=== PATIENT | female | born 1960 | race Caucasian/White ===

== ENCOUNTER 2020-02-10 21:59 | Observation (INO) | payer BC, SELFPAY ==
--- NOTE | ~2020-02-10 | MR_ITS ---
EXAMINATION: MR brain/brain stem wo/w con DATE: 02/11/2020 13:09 INDICATION: Dizziness. TECHNIQUE: Magnetic resonance imaging (MRI) of the brain and brainstem was performed without and with 12 mL MultiHance intravenous contrast. Sequences included sagittal and axial T1-weighted FSE, axial diffusion-weighted FS EPI, axial T2*-weighted GRE, axial T2-weighted FLAIR Propeller, and axial T2-we ighted Propeller. Postcontrast sequences included axial and coronal T1-weighted FSE. Apparent diffusi on coefficient (ADC) maps were created. COMPARISON: Head CTA 02/10/2020 FINDINGS: There are scattered areas of nonspecific increased T2-weighted signal intensity in the cere bral white matter, which is within normal limits for the patient's age. There is no intracranial hemo rrhage, acute infarction, or abnormal intracranial mass lesion. The ventricles are normal in size. Th ere is mucosal thickening in the paranasal sinuses. The orbits are normal. The mastoid air cells are normal. IMPRESSION: 1. Normal aging brain. Reviewed, dictated and finalized at location A. IMPRESSION: 1. Normal aging brain.
--- NOTE | ~2020-02-10 | CT_ITS ---
EXAMINATION: CTA brain carotid DATE: 02/10/2020 23:03 INDICATION: Dizziness. TECHNIQUE: Computed tomographic angiography (CTA) of the head was performed without and with 100 mL O mnipaque-350 intravenous contrast. CTA of the neck was performed with intravenous contrast. Automated exposure control and iterative reconstruction technique were employed. The dose-length product was 1 757.71 mGy-cm. Maximum intensity projection and volume rendered 3D-reconstructions were created by odalys lopez technologist on a separate workstation. COMPARISON: None. FINDINGS: HEAD CTA: There is no intracranial hemorrhage, acute infarction, or abnormal intracranial mass lesion . The ventricles are normal in size. The orbits are normal. There is mild mucosal thickening in the p aranasal sinuses. The mastoid air cells are normal. The vertebral arteries are codominant. There is n o significant stenosis of basilar artery or the posterior cerebral arteries. Left P1 posterior cerebr al artery segment is small, a normal variant. There is no significant stenosis of the intracranial in ternal carotid arteries or anterior or middle cerebral arteries. Anterior communicating artery is nor mal. The posterior communicating arteries are normal. There is no aneurysm. NECK CTA: There is mild scarring at the lung apices. There is an 8 mm nodule in left thyroid lobe, li jono not clinically significant. There are no pathologically enlarged lymph nodes. There is plaque in the proximal internal carotid arteries. There is 0% stenosis of the proximal right internal carotid artery relative to normal distal artery lumen diameter (NASCET criteria). There is 0% stenosis of the proximal left internal carotid artery relative to normal distal artery lumen diameter. There is mode rate cervical spondylosis. IMPRESSION: 1. Normal brain. No aneurysm or significant intracranial arterial stenosis. 2. 0% stenosis of the proximal internal carotid arteries relative to normal distal artery lumen luise ters (NASCET criteria). Reviewed, dictated and finalized at location A. IMPRESSION: 1. Normal brain. No aneurysm or significant intracranial arterial stenosis. 2. 0% stenosis of the proximal internal carotid arteries relative to normal dis roseanne artery lumen diameters (NASCET criteria).
[2020-02-10 22:03] VITALS: BP 121/61; PULSE 71; RESP 20; O2SAT 99
--- NOTE | 2020-02-10 22:07 | ECG_ITS ---
Measurements Intervals [place] Rate: 50 P: 71 AL: 150 QRS: 88 QRSD: 105 T: 78 QT: 461 QTc: 424 Interpretive Statements SINUS BRADYCARDIA BASELINE ARTIFACT- I, II, III, AVR, AVL, AVF, V1-V6 BORDERLINE ECG Electronically Signed On 02-11-2020 6:55:58 CDT by Jacobo Jeffrey D.O.
--- NOTE | 2020-02-10 22:08 | ED.GENADULT ---
HPI - General Adult General Chief complaint: Dizziness Stated complaint: weakness Time Seen by Provider: 02/10/20 22:03 Source: patient History of Present Illness HPI narrative: Patient is a 59 y/o female complaining of severe dizziness, nausea, vomiting, numbness/tingling all over since 6 hours ago. This started about 4:00 PM. She describes her dizziness as a room spinning sensation. Her dizziness is worse with turn her head to the right side. She denies passing out. She is able to move all 4 extremities. Related Data Home Medications Medication Instructions Recorded Confirmed teriparatide [Forteo] 20 mcg SUBCUT DAILY 02/11/20 02/11/20 Allergies Allergy/AdvReac Type Severity Reaction Status Date / Time No Known Drug Allergies Allergy Unknown none Verified 02/11/20 02:59 Review of Systems Constitutional: Constitutional: Denies chills, Denies fever(s), Denies headache(s) and Denies weakness Eyes: Eyes: Denies blurry vision ENT: Denies headache(s) and Denies neck pain Cardiovascular: Cardiovascular: Denies chest pain and Denies dyspnea Respiratory: Respiratory: Denies cough and Denies dyspnea Gastrointestinal: Gastrointestinal: Denies abdominal pain, Denies diarrhea, Reports nausea and Reports vomiting Genitourinary: Genitourinary: Denies hematuria and Denies dysuria Musculoskeletal: Musculoskeletal: Denies back pain and Denies neck pain Neurologic: Reports vertigo, Reports dizziness, Denies headache(s) and Denies weakness [facility] Past Medical History Medical History (Updated 02/11/20 @ 13:20 by Kathy Sal MD) Osteoporosis Temporal arteritis Family History Family History Father Acute myocardial infarction Social History Social History Smoking status: Never smoker Alcohol intake: never Substance use: never Gender identity (if verbalized by the patient): Female Spiritual care concerns: No Exam Const: General: no acute distress, well developed and anxious Orientation/consciousness: oriented to person, oriented to place, oriented to time and patient oriented x3 HENMT: Head: normocephalic Ears: external ears normal General nose exam: Normal external nose present Eyes: General: appearance normal, both eyes and all related structures Conjunctivae: conjunctivae normal Neck: Neck: normal visual inspection and full ROM Chest: Chest palpation & inspection: normal inspection of the chest and no tenderness Resp: Effort & Inspection: normal respiratory effort Auscultation: clear to auscultation bilaterally Cardio: Rate: regular rate Rhythm: regular rhythm GI: GI Palp: No abdominal tenderness and Yes Soft to palpation Skin: General skin exam: normal color, turgor normal and other (diaphoretic) Neuro: General: oriented to person, oriented to place, oriented to time and patient oriented x3 Cranial nerves: Yes CN's II-XII intact bilaterally Cognition (Neuro): normal cognition Speech: normal speech Motor exam (neuro): 5/5 motor strength present throughout Sensory Exam: normal sensation Coordination: iemkax-jp-[id number] test normal and jyjj-tm-ytih test normal Extrem: General: normal to inspection, full ROM and no pedal edema Psych: Appearance: grossly normal Mental Status: mental status grossly normal Affect: Anxious affect present Course Reevaluation(s) Reevaluation #1: Rechecked. Patient still feels dizzy and has nausea. Date: 02/10/20 Time: 23:45 Consultations Consultation #1: Discussed with Dr. Urrutia, who agrees to admit. Date: 02/10/20 Time: 23:59 Consultation #2: Discussed with Dr. Sims, who agrees to consult and also recommends MRI of brain. Date: 02/11/20 Time: 00:04 Vital Signs Vital signs: Vital Signs Pulse Rate 71 02/10/20 22:03 Respiratory Rate 20 02/10/20 22:03 Blood Pressure 121/61 02/10/20 22:03 Pulse Oximetry 99 02/10/20 22:03 Temperat
[2020-02-10 22:21] VITALS: BP 125/69; PULSE 59; RESP 13; O2SAT 100
[2020-02-10 22:22] LABS: Basophils Percent Auto 0.2 % (0.2-1.2); Eosinophils Percent Auto 0.8 % (0-4.4); Hematocrit 41.4 % (37.0-47.0); Hemoglobin 14.1 g/dL (12.0-15.0); Immature Granulocyte Absolute 0.01 K/mm3 (0.00-0.031); Immature Granulocyte Percent A 0.2 % (0-0.5); Lymphocytes Absolute Auto 2.55 K/mm3 (0.9-3.2); Lymphocytes Percent Auto 50.8 % (18.3-44.2); Mean Corpuscular HGB Conc 34.1 g/dl (32-36); Mean Platelet Volume 8.9 fl (7.4-10.4); Monocytes Absolute Auto 0.6 K/mm3 (0.1-0.6); Monocytes Percent Auto 11.6 % (2.6-8.5); Neutrophils Absolute Auto 1.8 K/mm3 (1.3-6.7); Neutrophils Percent Auto 36.4 % (45.5-73.1); Platelet Count Result 304 k/mm3 (150-375); Red Blood Count 4.87 M/mm3 (4.2-5.4); Red Cell Distribution Width 12.9 % (11.5-14.5)
[2020-02-10] MEDS: ONDANSETRON INJ 4 MG/2 ML VIAL IV PUSH (22:31)
[2020-02-10 22:34] LABS: Alanine Aminotransferase 14 U/L (4-35); Albumin Level 4.1 g/dL (3.5-5.1); Alkaline Phosphatase 50 U/L (38-126); Anion Gap 11 mmol/L (8-16); Aspartate Amino Transferase 20 U/L (14-36); Bilirubin,Total 0.5 mg/dL (0.2-1.3); Blood Urea Nitrogen 14 mg/dL (7-17); Calcium 9.4 mg/dL (8.4-10.2); Carbon Dioxide 23 mmol/L (22-30); Chloride 101 mmol/L (98-107); Estimated Glomerular Filt Rate > 60; Glucose 113 mg/dL (65-105); Potassium 3.3 mmol/L (3.4-5.0); Sodium 135 mmol/L (137-145)
[2020-02-10] MEDS: MECLIZINE HCL 25 MG TABLET PO (23:07)
[2020-02-10] MEDS: POTASSIUM CHLORIDE 20 MEQ TABLET PO (23:24)
[2020-02-10 23:52] VITALS: O2SAT 98
[2020-02-10] MEDS: METOCLOPRAMIDE HCL INJ 10 MG/2 ML VIAL IV PUSH (23:56)
[2020-02-11] VITALS (11 sets, daily range): BP systolic 101–117; BP diastolic 52–85; PULSE 55–84; RESP 13–19; TEMP 36.9–37.3; O2SAT 97–100; BMI 19.8
--- NOTE | 2020-02-11 00:54 | PM.IMHP ---
H&P: HPI History of Present Illness Date/Time: 02/11/20 00:54 Chief complaint: dizziness Narrative: This is a pleasant 59-year-old female with known past medical history of temporal arteritis as well as osteoporosis who presented to the hospital with a complaint of dizziness, nausea, vomiting and frontal headache that started yesterday afternoon around 4:00 p.m.. The patient describes that she was driving when suddenly she felt very dizzy. She managed to get home and noticed that her dizziness worsened with any type of exertional activity such as standing up or moving her head. Her symptoms would not resolve so she decided to come to the emergency room for evaluation. She denies any previous history of dizziness. She denies any recent head trauma. On further questioning the patient also denies any loss of hearing or ear ringing. She has not had any recent fever, chills, cough, chest pain, palpitations, abdominal pain, dysuria, hematuria, diarrhea, rectal bleeding, or other focal neurological symptoms. She denies having any recent illnesses or sick contacts. The patient was evaluated emergency room this evening and head and neck CTA was performed which did not demonstrate any acute occlusion, dissection, or stenosis. Routine labs demonstrated mild hypokalemia. The patient was treated with meclizine and oral potassium. We been asked to admit the patient to the hospital for observation and continued care. She denies any other symptoms at this time. Review of Systems Review of Systems: All systems reviewed & are unremarkable except as noted in HPI and below PMFSH Past Medical History Medical History (Updated 02/11/20 @ 06:23 by Cirilo Urrutia MD) Osteoporosis Temporal arteritis Family History Family History Father Acute myocardial infarction Social History Social History Smoking status: Never smoker Alcohol intake: never Substance use: never Gender identity (if verbalized by the patient): Female Spiritual care concerns: No Comments Past surgical history is reviewed and noncontributory. Meds Home Medications and Allergies Home Medications Medication Instructions Recorded Confirmed Type teriparatide [Forteo] 20 mcg SUBCUT DAILY 02/11/20 02/11/20 History Allergies Allergy/AdvReac Type Severity Reaction Status Date / Time No Known Drug Allergies Allergy Unknown none Verified 02/11/20 02:59 Vital Signs Vital Signs - 24 hr 02/10/20 22:03 02/10/20 22:21 02/10/20 23:52 Pulse Rate 71 59 L Respiratory Rate 20 13 Blood Pressure 121/61 125/69 Pulse Oximetry 99 100 98 02/11/20 00:00 02/11/20 00:15 02/11/20 00:32 Pulse Rate 62 63 Respiratory Rate 13 15 Blood Pressure 101/85 Pulse Oximetry 100 97 99 02/11/20 00:45 02/11/20 00:47 Pulse Rate 59 L Respiratory Rate 19 Blood Pressure 108/74 Pulse Oximetry 99 100 Exam Const: General: cooperative, alert, awake and acute distress ( dizziness) mild Nutritional Appearance: well nourished Orientation/consciousness: patient oriented x3 HENMT: Head: normal to inspection General nose exam: Normal external nose present Face and sinus: normal facial exam Mouth: Yes Normal oral and palatal mucosa present and Yes oropharynx normal Eyes: Pupils: Equal, round and reactive pupils present EOM: EOMs intact bilaterally Neck: Neck: supple and no JVD Thyroid: thyroid normal Lymphatic: lymphadenopathy not noted Resp: Effort & Inspection: normal respiratory effort Auscultation: clear to auscultation bilaterally Cardio: Rate: regular rate Rhythm: regular rhythm Heart sounds: no murmurs GI: Inspection: normal to inspection Auscultation: normal bowel sounds Skin: General skin exam: normal color and no rashes or lesions noted Neuro: General: patient oriented x3 and other (Dizziness is easily induced with head movement
--- NOTE | 2020-02-11 01:05 | ADMGEN ---
This patient, Iraj Floyd, was admitted to 2 Medical Room 261-01. Patient/family oriented to hospital policies and general routines including ID bracelet, bed and alarms, visiting hours, pain management, procedures, bathroom and other care routines, personal items, smoking policy, room service/diet, and visiting hours. Valuables list has been completed. Information on how to activate the Rapid Response Team has been discussed. Patient/Family are encouraged to report perceived risks to care and to ask questions if they do not understand what they are told or what they should do.
[2020-02-11] MEDS: MECLIZINE HCL 25 MG TABLET PO ×2 (01:33→10:57)
[2020-02-11] MEDS: SODIUM CHLORIDE 0.9% IV 1,000 ML 100 ML IV CONT ×2 (01:34→11:32)
[2020-02-11 06:11] LABS: Basophils Percent Auto 0.3 % (0.2-1.2); Eosinophils Percent Auto 0.3 % (0-4.4); Hematocrit 37.9 % (37.0-47.0); Hemoglobin 12.7 g/dL (12.0-15.0); Immature Granulocyte Absolute 0.02 K/mm3 (0.00-0.031); Immature Granulocyte Percent A 0.6 % (0-0.5); Lymphocytes Absolute Auto 1.36 K/mm3 (0.9-3.2); Mean Corpuscular HGB Conc 33.5 g/dl (32-36); Mean Corpuscular Volume 86.5 fl (80-100); Mean Platelet Volume 9.1 fl (7.4-10.4); Monocytes Absolute Auto 0.5 K/mm3 (0.1-0.6); Monocytes Percent Auto 12.9 % (2.6-8.5); Neutrophils Absolute Auto 1.6 K/mm3 (1.3-6.7); Neutrophils Percent Auto 46.9 % (45.5-73.1); Platelet Count Result 259 k/mm3 (150-375); Red Blood Count 4.38 M/mm3 (4.2-5.4); Red Cell Distribution Width 12.9 % (11.5-14.5); White Blood Count 3.5 K/mm3 (4.5-10.0)
[2020-02-11 06:19] LABS: Anion Gap 3 mmol/L (8-16); Blood Urea Nitrogen 11 mg/dL (7-17); Calcium 8.5 mg/dL (8.4-10.2); Carbon Dioxide 29 mmol/L (22-30); Chloride 105 mmol/L (98-107); Estimated CRCL calculation 74 ml/min; Estimated Glomerular Filt Rate > 60; Glucose 94 mg/dL (65-105); Potassium 4.4 mmol/L (3.4-5.0); Sodium 137 mmol/L (137-145)
[2020-02-11 07:29] LABS: Folic Acid 10.9 ng/mL (2.76->20); Vitamin B12 > 1000.0 pg/mL (239-931)
--- NOTE | 2020-02-11 14:19 | PM.DS ---
DS: Admitting Diagnosis Admitting Diagnosis Admitting Diagnosis: dizziness DS: Discharge Diagnosis Discharge Diagnosis (1) Dizziness: Code(s): R42 - Dizziness and giddiness Status: Acute Assessment and Plan: Date of Admission 02/11/20 Date of Discharge/DOS 02/11/20 Ms. Floyd is a 59yo F who presented to the ED for evaluation of acute onset of dizziness. She described that she felt as though the room was spinning and her symptoms worsened with turning her head from side to side or moving from a lying /sitting to standing position. The following morning, her symptoms were much improved and nearly resolved. She was treated with meclizine. Workup included CTA head/neck and MRI brain which were unremarkable. It is felt that her symptoms at this time are related to vertigo. She was hemodynamically stable for discharge with instructions to follow-up with PCP. She was prescribed oral meclizine at discharge along with an order for PT/vestibular therapy if needed for persistent symptoms. (2) Osteoporosis: Code(s): M81.0 - Age-related osteoporosis without current pathological fracture Status: Chronic Assessment and Plan: Continue Forteo. DS: Summary Time Spent with Patient Time attestation: Total time spent providing and/or coordinating discharge services: 35 minutes Exam Narrative: Exam Narrative: General: Female resting supine in bed in no acute distress. HEENT: Normocephalic, EOMI, oral mucosa moist, no nystagmus. Cardiovascular: Rate and rhythm are regular. Respiratory: Lungs clear to auscultation all andrews. Non-labored breathing. Abdomen: Soft, non-tender, non-distended, bowel sounds present. Extremities: Peripheral pulses intact. No edema. Neuro: No focal neurological deficits. Cranial nerves II-XII grossly intact as tested. Trucksmith strength, upper and lower extremity strength are appropriate and equal bilaterally. No facial asymmetry. Speech is clear. DS: Data Data Completed and Pending Labs on day of discharge: Last Vital Signs Temp 99.2 F 02/11/20 10:12 Pulse 64 02/11/20 12:00 Resp 17 02/11/20 10:12 BP 105/60 02/11/20 10:12 Pulse Ox 98 02/11/20 10:12 ITS Impressions Head/Neck CTA 02/11/20 07:24 IMPRESSION: 1. Normal brain. No aneurysm or significant intracranial arterial stenosis. 2. 0% stenosis of the proximal internal carotid arteries relative to normal distal artery lumen diameters (NASCET criteria). Brain MRI 02/11/20 13:09 IMPRESSION: 1. Normal aging brain. Laboratory Tests 02/11/20 05:20 02/11/20 05:20 Discharge Plan Discharge Attending physician on discharge: Melany Winchester Consulting providers: Hermelindo Sims ; Jacobo Jeffrey ; Mac Velázquez V. ; Lisa Lazar Discharging Clinician: Lisa Lazar Anticipated Discharge Date/Time: 02/11/20 14:15 Patient Disposition: Home, Self-Care Activity: as tolerated Diet: as tolerated Discharge Instructions: Call to schedule a follow up appointment with Dr De Leon in 1 to 2 weeks, sooner if you are feeling worse. It is suspected that your symptoms are related to vertigo. You can continue to take meclizine as needed for dizziness. If dizziness persists, you may benefit from vestibular therapy, which is a special type of physical therapy to help with dizziness and vertigo. Attached in an order for vestibular therapy PT. The results of your brain CT and MRI are normal. There is no evidence of stroke (old or new), bleeding, mass, or other reasons to explain your symptoms. Continue to monitor your symptoms and seek medical care right away if your illness is worsening. Return to ER if you have concerning symptoms including chest pain, feeling like you can't breathe, or persistent fevers > 101F. In light of the current Coronavirus spread, is recommended that you call your primary care provider if you begin to develop
== END 2020-02-11 15:05 | disposition home or self-care (01) ==
LOC: ANHED 02-11 00:32 → ANH2MED 02-11 00:34
PROVIDERS: Admitting Provider Family Medicine; Emergency Provider Emergency Medicine; Visit Provider Family Medicine
DX: R42 Dizziness and giddiness (principal); M81.0 Age-related osteoporosis without current pathological fracture
CPT/HCPCS: 36415; 70496; 70498; 70553; 80048; 80053; 82607; 82746; 84443; 85025; 93005; 96361; 96374; 96375; 99285; A9270; A9577; G0378; J2405; J2765; J7030; Q9967

== ENCOUNTER 2023-02-03 13:30 | Outpatient (CLI) | payer BC, SELFPAY ==
[2023-02-03 13:59] LABS: Alanine Aminotransferase 18 U/L (6-35); Albumin Level 3.9 g/dL (3.5-5.1); Alkaline Phosphatase 33 U/L (38-126); Amylase 94 U/L (30-110); Aspartate Amino Transferase 25 U/L (14-36); Bilirubin,Total 0.6 mg/dL (0.2-1.3); Lipase 99 U/L (23-300)
== END 2023-02-03 13:31 | disposition home or self-care (01) ==
LOC: ANHLAB 13:32
PROVIDERS: Visit Provider Nurse Practitioner
DX: R10.13 Epigastric pain (principal); Z86.19 Personal history of other infectious and parasitic diseases; R05.3 Chronic cough; R49.0 Dysphonia
CPT/HCPCS: 36415; 80076; 82150; 83690

== ENCOUNTER → 2023-02-08 08:38 | Outpatient (CLI) | payer BC, SELFPAY ==
--- NOTE | ~2023-02-08 | US_ITS ---
US abdomen complete EXAMINATION: US Abdomen Complete INDICATION: Epigastric pain radiating to the right upper quadrant PROCEDURE: Realtime High Resolution abdomen ultrasound. COMPARISON: No prior studies for comparison FINDINGS: Gallbladder within normal limits. No gallstones, pericholecystic fluid, gallbladder wall t hickening or biliary dilatation. Common bile duct measures 4 mm. Liver echotexture within normal limits without focal mass. Pancreas within normal limits. Pancreati c tail is obscured by bowel gas. Spleen is unremarkeable. Renal echotexture is within normal limits bilaterally without hydronephrosis, contour deforming mass or renal stone. Right kidney measures 9.5 cm. Left kidney measures 10.9 cm. Visualized aspects of the aorta and IVC are within normal limits. Portal vein is patent. No sonograph ic Gutierrez's sign indicated by the technologist. IMPRESSION: 1: Unremarkable abdominal ultrasound. Reviewed, dictated and finalized at location .
== END ==
PROVIDERS: PCP Nurse Practitioner; Visit Provider Nurse Practitioner
DX: R10.13 Epigastric pain (principal)
CPT/HCPCS: 76700

== ENCOUNTER 2023-02-11 17:06 | Outpatient (CLI) | payer BC, SELFPAY ==
[2023-02-14 19:39] LABS: H pylori, Urea Breath NOT DETECTED (NOT DETECTED)
== END 2023-02-11 17:07 | disposition home or self-care (01) ==
LOC: ANHLAB 17:08
PROVIDERS: PCP Nurse Practitioner; Visit Provider Nurse Practitioner
DX: R10.13 Epigastric pain (principal); Z86.19 Personal history of other infectious and parasitic diseases; R05.3 Chronic cough; R49.0 Dysphonia
CPT/HCPCS: 83013

== ENCOUNTER 2023-06-01 08:30 | Outpatient (CLI) | payer BC, SELFPAY ==
--- NOTE | ~2023-06-01 | CT_ITS ---
EXAMINATION: CT abdomen w con DATE: 06/01/2023 09:13 INDICATION: Radiating epigastric pain TECHNIQUE: Computed tomography (CT) of the abdomen was performed with 100 CC Omnipaque 350 intravenou s contrast. Automated exposure control and iterative reconstruction technique were employed. Exam dos e: 106.72 mGy-cm total exam DLP. COMPARISON: 02/08/2023 complete abdominal ultrasound examination FINDINGS: The lung bases are clear of infiltrate or consolidation. Normal heart size. Trace pericardial fluid. Breast implants. The liver, spleen, gallbladder, bile ducts, pancreas, pancreatic duct and adrenal glands are unremark able. 6.5 mm right renal cyst. 7.7 mm left renal cyst. No renal or proximal ureteral calculus or hydrourete ronephrosis. There is atherosclerotic calcification but normal caliber of the abdominal aorta. No intraperitoneal or retroperitoneal mass lesion or adenopathy or ascites. No bowel obstruction or intraperitoneal free air is evident. Included skeletal structures are unremarkable. IMPRESSION: Bilateral renal cysts Reviewed, dictated and finalized at Location A. Reviewed, dictated and finalized at location B. NS SERVICE CONDUCTOR IMPRESSION: Bilateral renal cysts
[2023-06-01 09:06] LABS: Estimated Glomerular Filt Rate > 60
== END 2023-06-01 08:31 | disposition home or self-care (01) ==
PROVIDERS: PCP Nurse Practitioner; Visit Provider Nurse Practitioner
DX: R10.13 Epigastric pain (principal); K44.9 Diaphragmatic hernia without obstruction or gangrene; N28.1 Cyst of kidney, acquired
CPT/HCPCS: 74160; Q9967

== ENCOUNTER 2024-06-25 07:48 | Outpatient (CLI) | payer OTHER, SELFPAY ==
--- NOTE | ~2024-06-25 | US_ITS ---
EXAM: ABDOMEN ULTRASOUND HISTORY: R10.13 - Epigastric pain COMPARISON: 02/08/2023 FINDINGS: LIVER: The liver is unremarkable in echogenicity and size measuring 17cm in longitudinal dimension. The portal vein is patent demonstrating hepatopedal flow. GALLBLADDER: The gallbladder is decompressed, without calcified stones. No gallbladder wall thickening or pericholecystic fluid. BILE DUCTS: Common bile duct measures 2.7mm. PANCREAS: Limited evaluation of the pancreas secondary to overlying bowel gas SPLEEN: The spleen is unremarkable in echogenicity and size measuring 9.7cm in longitudinal dimension . RIGHT KIDNEY: 9.6 cm. In length. No hydronephrosis or bulky renal calculi. LEFT KIDNEY: 10.7cm in length. No hydronephrosis or renal calculi. VASCULATURE : The abdominal aorta is nonaneurysmal. The IVC is patent. IMPRESSION: Evaluation of the pancreas is limited by overlying bowel gas. Otherwise unremarkable sonographic evaluation of the abdomen, as detailed above. Reviewed, dictated and finalized at location A. [employer] IMPRESSION: Evaluation of the pancreas is limited by overlying bowel gas. Otherwise unremarkable sonographic evaluation of the abdomen, as detailed above .
--- OUTSIDE RECORDS SUMMARY | 2024-06-25 07:54 | XMS_ITS | Encounter Summary ---
Author Organization [facility] Address [address] [place] [address] Phone Care Team Providers Care Medical Insurance Coder Name Role Phone Iftikhar Lopez MD Primary Care Provider Valerie Jason MD Primary Care Provid er Encounter Details Date Type Department Care Team (Late st Contact Info) Description 10/07/2020 Orders Only [facility] Scanning, Provider Social History Tobacco Use Types Packs/Day Years Used Date Smoking Tobacco: Never Smokeless Tobacco: Never Alcohol Use Standard Drinks/Week Comments No 0 (1 standard drink = 0.6 oz pur e alcohol) Comments Unknown Sex and Gender Information Value Date Recorded Sex Assigned at Not on file Legal Sex Female 12:57 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 Gender Identity Not on file Sexual Orientation Not on file documented as of this encounter Plan of Treatment Not on file documented as of this encounter Procedures Procedure Name Priority Date/Time Associated Diagnosis Comments SCAN - RADIOLOGY/IMAGING 10/07/2020 documented in this encounter Results * SCAN - RADIOLOGY/IMAGING (10/07/2020) Anatomical Region Laterality Modality Other us Provider Scanning Final Result documented in this encounter Visit Diagnoses Not on filedocumented in this encounter Care Teams Medical Insurance Coder Relationship Specialty Start Date End Date Iftikhar Lopez MD [address] [place] [address] PCP - General 01/27/15 05/03/22 Valerie Jason MD [address] [facility] [address] [place] [address] PCP - General Internal Medicine 05/04/22 documented as of this encounter
--- OUTSIDE RECORDS SUMMARY | 2024-06-25 07:54 | XMS_ITS | Referral Summary ---
Author Organization [facility] Address [address] [place] [address] Care Team Providers Care Bench Lathe Operator Name Role Phone Iftikhar Lopez MD Primary Care Provider [phone] Source Comments [facility],non-owned Affiliates and Associated Physician Practices is amultiple site organization consisting of ambulatory clinics and hospital sitesin [place], [place], [place] and [place]. This disclosure is being madepursuant to the Care Everywhere program and may not contain all information available regarding this patient. Last updated 18.[facility] [employer] Social History Tobacco Use Types Packs/Day Years Used Date Smoking Tobacco: Never Assessed Sex and Gender Information Value Date Recorded Sex Assigned at Not on file Gender Identity Not on file Sexual Orientation Not on file Last Filed Vital Signs Vital Sign Reading Time Taken Comments Blood Pressure 110/70 07/30/2014 10:48 AM CDT Pulse - - Temperature - - Respiratory Rate - - Oxygen Saturation - - Inhaled Oxygen Concentration - - Weight 65.8 kg (145 lb) 07/30/2014 10:48 AM CDT Height 180.3 cm (5' 11 ) 07/30/2014 10:48 AM CDT Body Mass Index 20.22 07/30/2014 10:48 AM CDT Plan of Treatment Not on file Care Teams Bench Lathe Operator Relationship Specialty Start Date End Date Iftikhar Lopez MD [address] [place] [address] PCP - General 06/10/11
--- OUTSIDE RECORDS SUMMARY | 2024-06-25 07:54 | XMS_ITS | Encounter Summary ---
Author Organization [facility] Health Address [address] [place] [address] Care Team Providers Care Airdox Fitter Name Role Phone Iftikhar Lopez MD Primary Care Provider [phone] Encounter Details Date Type Department Care Team (Late st Contact [facility]) Description 05/17/2018 Lab Requisition [facility] Care DermPath Lab [address] [place] [address] Simran Oconnell MD [address] [facility] [address] [place] [address] Social History Tobacco Use Types Packs/Day Years Used Date Smoking Tobacco: Never Assessed Sex and Gender Information Value Date Recorded Sex Assigned at Not on file Gender Identity Not on file Sexual Orientation Not on file documented as of this encounter Plan of Treatment Not on file documented as of this encounter Procedures Procedure Name Priority Date/Time Associated Diagnosis Comments DERMATOPATH TECHNICAL REPORT Routine 05/16/2018 12:00 AM ANIMAL TRAPPER documented in this encounter Results * DERMATOPATH TECHNICAL REPORT (05/16/2018 12:00 AM ANIMAL TRAPPER) Case Report Dermatopathology Report Case: [id number] Authorizing Provider: Simran Oconnell MD Collected: 05/16/2018 12:00 AM Pathologist: Melida Lopez MD Received: 05/17/2018 07:14 AM Specimen: Skin, left upper arm 9 11:58 AM ANIMAL TRAPPER DERMATOPATHOLOGY LABORATORY Clinical History Bx proven SCCIS. Check margins. Previous Bx: [id number]. 11:58 AM [facility] DERMATOPATHOLOGY LABORATORY Gross Description Specimen A: Received is one formalin filled container labeled with the patient's name and designated left upper arm. The specimen consists of a non-oriented ellipse of skin measuring [id number]. The epidermal surface consists of a centrally located 6x6mm previous biopsy site. The margin is inked green. The 12 o'clock and 6 o'clock tips are submitted in cassette 1. The remainder of the ellipse is serially sectioned and submitted in cassettes 2-4, submitted in cassette 5 are 2 dog ears measuring [id number] & [id number]. Jar 0. [facility] Dermatopathology Laboratory performed the technical component only. 11:58 AM [facility] DERMATOPATHOLOGY LABORATORY Embedded Images 11:58 AM [facility] DERMATOPATHOLOGY LABORATORY DISCLAIMER An external and internal positive and negative controls are appropriate for the histochemical, immunohistochemical and immunofluorescence stain(s) in this case (if any), except where stated explicitly. The performance characteristics of the stain(s) cited in this report were developed and its performance characteristic determined by the Dermatopathology Laboratory at [facility], directed by Dr. Libra Bautista. These tests need not be, and therefore are not, approved by the [place] Food and Drug Administration. The tests are used for clinical purposes. 11:58 AM [facility] DERMATOPATHOLOGY LABORATORY Pathology/Cytolog y TISSUE SPECIMEN FROM SKIN / Unknown 05/16/2018 05/17/2018 7:14 AM [facility] Simran Oconnell MD LAB - PATHOLOGY/CYT OLOGY ORDERABLES DERMATOPATHOLOGY LABORATORY [facility] - Department of Dermatology [address]th [place] [address], [facility] [phone] documented in this encounter Visit Diagnoses Not on filedocumented in this encounter Care Teams Airdox Fitter Relationship Specialty Start Date End Date Iftikhar Lopez MD [facility] [address] [place] [id number] PCP - General 06/10/11 documented as of this encounter
--- OUTSIDE RECORDS SUMMARY | 2024-06-25 07:54 | XMS_ITS | Patient Health Summary ---
Author Organization [facility] Address [address] [place] [address] Care Team Providers Care Paster Operator Name Role Phone Iftikhar Lopez MD Primary Care Provider [phone] Note from [facility],non-owned Affiliates and Associated Physician Practices is amultiple site organization consisting of ambulatory clinics and hospital sitesin [place], [place]. This disclosure is being madepursuant to the Care Everywhere program and may not contain all information available regarding this patient. Last updated 18.[facility] Social History Tobacco Use Types Packs/Day Years [...] Mass Index 20.22 07/30/2014 10:48 AM CDT Procedures * DERMATOPATHOLOGY(Performed 02/28/2024) * DERMATOPATHOLOGY(Performed 06/14/2023) * DERMATOPATHOLOGY(Performed 10/28/2020) * DERMATOPATHOLOGY(Performed 09/18/2020) * DERMATOPATHOLOGY(Performed 02/07/2020) * DERMATOPATHOLOGY(Performed 07/04/2019) * DERMATOPATHOLOGY(Performed 05/08/2019) * DERMATOPATH TECHNICAL REPORT(Performed 05/16/2018) * DERMATOPATH TECHNICAL REPORT(Performed 03/10/2018) * DERMATOPATHOLOGY(Performed 02/16/2017) * DERMATOPATHOLOGY(Performed 11/20/2014) * PH FLUID - POCT (AMB) [facility](Performed 07/30/2014) * FUNGUS SAPNA - POINT OF CARE (AMB) [facility](Performed 07/30/2014) * WET PREP - POINT OF CARE (AMB) [facility](Performed 07/30/2014) * CULTURE FUNGUS OTHER+FUNGUS SMEAR(Performed 07/30/2014) * LIPASE BLOOD(Performed 01/02/2014) Performed for Abdominal pain, unspecified site * COMPREHENSIVE METABOLIC PANEL(Performed 01/02/2014) Performed for Abdominal pain, unspecified site * CBC W AUTO DIFFERENTIAL(Performed 01/02/2014) Performed for Abdominal pain, unspecified site * US ABDOMEN LIMITED(Performed 01/02/2014) Performed for Nausea alone, Abdominal pain, unspecified site * DERMATOPATHOLOGY(Performed 04/28/2011) * LAB HISTORICAL RESULTS-ONBASE(Performed 03/18/2011) * CULTURE FUNGUS OTHER+FUNGUS SMEAR(Performed 03/18/2011) * US ABDOMEN LIMITED(Performed 11/03/2010) Performed for Abdominal pain, unspecified site * CULTURE FUNGUS OTHER+FUNGUS SMEAR(Performed 03/06/2009) * LAB HISTORICAL RESULTS-ONBASE(Performed 02/25/2009) * LAB HISTORICAL RESULTS-ONBASE(Performed 02/25/2009) * PATHOLOGY/GENETICS HISTORICAL-ONBASE(Performed 02/25/2009) * PATHOLOGY/GENETICS HISTORICAL-ONBASE(Performed 02/25/2009) * PATHOLOGY/GENETICS HISTORICAL-ONBASE(Performed 02/25/2009) * PATHOLOGY/GENETICS HISTORICAL-ONBASE(Performed 02/25/2009) * PATHOLOGY/GENETICS HISTORICAL-ONBASE(Performed 02/25/2009) * PATHOLOGY/GENETICS HISTORICAL-ONBASE(Performed 02/25/2009) * CULTURE FUNGUS OTHER+FUNGUS SMEAR(Performed 12/05/2008) * EKG 12-LEAD(Performed 09/10/2008) Performed for Nonspecific Abnormal Electrocardiogram (ECG) (EKG) * PATHOLOGY/GENETICS HISTORICAL-ONBASE(Performed 05/24/2006) * PATHOLOGY/GENETICS HISTORICAL-ONBASE(Performed 04/19/2006) * WET PREP - POINT OF CARE (AMB) [facility](Performed 05/02/1998) * FUNGUS SAPNA - POINT OF CARE (AMB) [facility](Performed 05/02/1998) * FUNGUS SAPNA - POINT OF CARE (AMB) [facility](Performed 05/02/1998) * WET PREP - POINT OF CARE (AMB) [facility](Performed 05/02/1998) Results * DERMATOPATHOLOGY (02/28/2024 3:12 PM CDT) Only the most recent of10 resultswithin the time period is included. Case Report Dermatopathology Report Case: [id number] Authorizing Provider: Clarice Page MD Collected: 02/28/2024 03:12 PM Ordering Location: [facility] - Received: 02/29/2024 11:51 AM DermPath Lab Pathologist: Anat Luis MD Specimens: A) - Skin, left upper lip B) - Skin, right calf C) - Skin, right hand 4 2:13 PM CDT DERMATOPATHOLOGY LABORATORY Final Diagnosis Specimen A. SKIN, left upper lip: BASAL CELL CARCINOMA, INFILTRATIVE PATTERN (C44.01) Specimen B. SKIN, right calf: SQUAMOUS CELL CARCINOMA IN SITU (HERZOG'S DISEASE) (D04.71) Specimen C. 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 The specimen consists of a shave biopsy measuring 5x3x1 mm. Jar 0. Specimen B: Received is one formalin filled container labeled with the patient's name and designated right calf. The specimen consists of a shave biopsy measuring 8x5x1 mm. Jar 0. Specimen C: Received is one formalin filled container labeled with the patient's name and designated right hand. The specimen consists of a shave biopsy measuring 6x5x1 mm. Jar 0. 4 2:13 PM CDT DERMATOPATHOLOGY LABORATORY Microscopic Description Specimen A. SKIN, left upper lip: Within the dermis there are nodular aggregates of basaloid cells associated with fibromyxoid stroma and epithelial-stromal clefts. At the advancing margin of the neoplasm, there are smaller angulated nests that infiltrate the dermis. Specimen B. SKIN, right calf: The epidermis shows parakeratosis, full thickness disorderly maturation of keratinocytes, mitoses at different levels, and dyskeratotic cells. Specimen C. SKIN, right hand: The epidermis shows focal parakeratosis and acanthosis. The lower half of the epidermis shows disorderly maturation of keratinocytes with nuclear pleomorphism. 4 2:13 PM CDT DERMATOPATHOLOGY LABORATORY Disclaimer An external and internal positive and negative controls are appropriate for the histochemical, immunohistochemical and immunofluorescence stain(s) in this case (if any), except where stated explicitly. The performance characteristics of the stain(s) cited in this report were developed and its performance characteristic determined by the Dermatopathology Laboratory at [facility], directed by Dr. Libra Bautista. These tests need not be, and therefore are not, approved by the [place] Food and Drug Administration. The tests are used for clinical purposes. Billing Codes Specimen Charges Stain Charges 79171 97398 50281 1 1 1 4 2:13 PM CDT DERMATOPATHOLOGY LABORATORY Embedded Images 4 2:13 PM CDT DERMATOPATHOLOGY LABORATORY Pathology/Cytology TISSUE SPECIMEN FROM SKIN / Unknown 02/28/2024 3:12 PM CDT 02/29/2024 11:51 AM CDT Miscellaneous samples (specimen) TISSUE SPECIMEN FROM SKIN / Unknown 02/28/2024 3:12 PM CDT 02/29/2024 11:51 AM CDT Miscellaneous samples (specimen) TISSUE SPECIMEN FROM SKIN / Unknown 02/28/2024 3:12 PM CDT 02/29/2024 11:51 AM CDT Clarice Page MD LAB - PATHOLOGY/CYTO LOGY ORDERABLES DERMATOPATHOLOGY LABORATORY [facility] - Department of Dermatology [address] [phone] * DERMATOPATH TECHNICAL REPORT (05/16/2018 12:00 AM [facility]) Only the most recent of2 resultswithin the time period is included. Case Report Dermatopathology Report Case: [id number] Authorizing Provider: Simran Oconnell MD Collected: 05/16/2018 12:00 AM Pathologist: Melida Lopez MD Received: 05/17/2018 07:14 AM Specimen: Skin, left upper arm 11:58 AM [facility] DERMATOPATHOLOGY LABORATORY Clinical History Bx proven SCCIS. Check margins. Previous Bx: [id number]. 11:58 AM [facility] DERMATOPATHOLOGY LABORATORY Gross Description Specimen A: Received is one formalin filled container labeled with the patient's name and designated left upper arm. The specimen consists of a non-oriented ellipse of skin measuring [id number]. The epidermal surface consists of a centrally located 6x6mm previous biopsy site. The margin is inked green. The 12 o'clock and 6 o'clock tips are submitted in cassette 1. The remainder of the ellipse is serially sectioned and submitted in cassettes 2-4, submitted in cassette 5 are 2 dog ears measuring [id number] & [id number]. Jar 0. [facility] Dermatopathology Laboratory performed the technical component only. 11:58 AM [facility] DERMATOPATHOLOGY LABORATORY Embedded Images 11:58 AM [facility] DERMATOPATHOLOGY LABORATORY DISCLAIMER An external and internal positive and negative controls are appropriate for the histochemical, immunohistochemical and immunofluorescence stain(s) in this case (if any), except where stated explicitly. The performance characteristics of the stain(s) cited in this report were developed and its performance characteristic determined by the Dermatopathology Laboratory at [facility], directed by Dr. Libra Bautista. These tests need not be, and therefore are not, approved by the [place] Food and Drug Administration. The tests are used for clinical purposes. 11:58 AM [facility] DERMATOPATHOLOGY LABORATORY Pathology/Cytolog y TISSUE SPECIMEN FROM SKIN / Unknown 05/16/2018 05/17/2018 7:14 AM ANIMAL ASSISTANT Simran Oconnell MD LAB - PATHOLOGY/CYT OLOGY ORDERABLES DERMATOPATHOLOGY LABORATORY [facility] Department of Dermatology [address]th [place] [address], [facility] [phone] * PH FLUID - POCT (AMB) U (07/30/2014) pH Vaginal 4.5 [facility] Vaginal swab (specimen) 07/30/2014 Karen Lizarraga MD LAB - POINT OF CAR E ORDERABLES [facility] * WET PREP - POINT OF CARE (AMB) U (07/30/2014) Only the most recent of3 resultswithin the time period is included. pH Wet Prep 4.5 [facility] Yeast Wet Prep neg [facility] Trichomonas Wet Prep neg [facility] Bacteria Wet Prep neg [facility] Whiff Test neg [facility] 07/30/2014 Karen Lizarraga MD LAB - POINT OF CAR E ORDERABLES [facility] * FUNGUS SAPNA - POINT OF CARE (AMB) U (07/30/2014) Only the most recent of3 resultswithin the time period is included. SAPNA Prep neg [facility] Fluid specimen (specimen) 07/30/2014 Karen Lizarraga MD LAB - POINT OF CAR E ORDERABLES [facility] * CULTURE FUNGUS OTHER+FUNGUS SMEAR (07/30/2014) Only the most recent of4 resultswithin the time period is included. Smear SEE NOTE [facility] ([facility]) Comment: CULTURE, FUNGUS W/SMEAR NOT HAIR, SKIN, BLOOD MICRO NUMBER: [id number] TEST STATUS: FINAL SPECIMEN SOURCE: VAGINAL SPECIMEN QUALITY: ADEQUATE SMEAR: No fungal elements seen. RESULT: No fungal growth at 4 Weeks Test Performed at: [facility] [address] CONOR ANG MD Other (qualifier value) 07/30/2014 07/31/2014 4:45 AM CDT Narrative [facility] ([facility]) - 08/29/2014 6:00 AM CDT Please check for all keyla species including keyla glabrata Please check for sensitivities even for keyla albicans result Please check for sensitivities for these drugs: 1. Anidulafungin 2. Micafungin 3. Caspofungin 4. 5-Flucytosine 5. Posaconazole 6. Voriconazole 7. Itraconazole 8. Fluconazole 9. Amphotericin B Specimen Type->Other vaginal Karen Lizarraga MD LAB - MICROBIOLOGY ORDERABLES [facility] ([facility]) * (ABNORMAL) CBC W AUTO DIFFERENTIAL (01/02/2014 11:44 AM CDT) WBC 5.2 4.4 - 10.7 x10^9/L 01/02/2014 12:08 PM CDT [facility] RBC 4.49 3.80 - 5.20 x10^12/L 01/02/2014 12:08 PM CDT [facility] Hemoglobin 13.0 12.0 - 15.6 gm/dL 01/02/2014 12:08 PM CDT [facility] Hematocrit 38.5 35.9 - 45.5 % 01/02/2014 12:08 PM CDT [facility] MCV 85.7 80.7 - 98.3 fl 01/02/2014 12:08 PM CDT [facility] MCH 29.0 26.7 - 34.0 pg 01/02/2014 12:08 PM CDT [facility] MCHC 33.8 30.8 - 35.9 gm/dL 01/02/2014 12:08 PM CDT [facility] Platelet Count 277 153 - 416 x10^9/L 01/02/2014 12:08 PM CDT [facility] RDW-CV 13.4 12.1 - 14.9 % 01/02/2014 12:08 PM CDT [facility] MPV 8.7(L) 9.4 - 12.9 fl 01/02/2014 12:08 PM CDT [facility] Neutrophils % 53.4 44.0 - 73.0 % 01/02/2014 12:08 PM CDT [facility] Lymphocytes % 36.3 20.0 - 43.0 % 01/02/2014 12:08 PM CDT [facility] Monocytes % 8.0 5.0 - 13.0 % 01/02/2014 12:08 PM CDT [facility] Eosinophils % 1.7 0.0 - 6.0 % 01/02/2014 12:08 PM CDT [facility] Basophils % 0.4 0.0 - 2.0 % 01/02/2014 12:08 PM CDT [facility] Immature Granulocytes 0.2 0 - 1 % 01/02/2014 12:08 PM CDT [facility] Neutrophil Absolute 2.79 2.01 - 7.14 x10^9/L 01/02/2014 12:08 PM CDT [facility] Lymphocytes Absolute 1.90 1.07 - 3.94 x10^9/L 01/02/2014 12:08 PM CDT [facility] Monocytes Absolute 0.42 0.26 - 1.07 x10^9/L 01/02/2014 12:08 PM CDT [facility] Eosinophils Absolute 0.09 0 - 0.47 x10^9/L 01/02/2014 12:08 PM CDT [facility] Basophils Absolute 0.02 0 - 0.08 x10^9/L 01/02/2014 12:08 PM CDT [facility] Immature Granulocytes Absolute 0.01 0.00 - 0.06 x10^9/L 01/02/2014 12:08 PM CDT [facility] Blood BLOOD SPECIMEN / Unknown Lab Venipuncture / Unknown 01/02/2014 11:44 AM CDT 01/02/2014 12:02 PM CDT Isaiah Levy MD LAB - HEMATOLOGY OR DERABLES [facility] [address] [place] [address] * (ABNORMAL) COMPREHENSIVE METABOLIC PANEL (01/02/2014 11:44 AM CDT) Glucose 84 74 - 106 mg/dL 01/02/2014 12:30 PM CDT [facility] Sodium 140 136 - 145 mmol/L 01/02/2014 12:30 PM CDT [facility] Potassium 4.1 3.5 - 5.1 mmol/L 01/02/2014 12:30 PM CDT [facility] Chloride 107 98 - 107 mmol/L 01/02/2014 12:30 PM CDT [facility] CO2 31 22 - 31 mmol/L 01/02/2014 12:30 PM CDT [facility] Calcium 8.9 8.5 - 10.1 mg/dL 01/02/2014 12:30 PM [facility] Anion Gap 2(L) 5 - 15 mmol/L 01/02/2014 12:30 PM [facility] BUN 16 7 - 21 mg/dL 01/02/2014 12:30 PM T [facility] Creatinine 0.63 0.50 - 1.30 mg/dL 01/02/2014 12:30 PM [facility] eGFR by MDRD >60 >60 mL/min/1.7 3m2 01/02/2014 12:30 PM [facility] eGFR by MDRD >60 >60 mL/min/1.7 3m2 01/02/2014 12:30 PM [facility] Alkaline Phosphatase 34(L) 38 - 126 U/L 01/02/2014 12:30 PM T [facility] ALT 23 12 - 78 U/L 01/02/2014 12:30 PM [facility] AST 15 5 - 40 U/L 01/02/2014 12:30 PM [facility] Protein Total 6.8 6.4 - 8.2 gm/dL 01/02/2014 12:30 PM [facility] Albumin 3.6 3.4 - 5.0 gm/dL 01/02/2014 12:30 PM [facility] Bilirubin Total 0.7 0.2 - 1.0 mg/dL 01/02/2014 12:30 PM [facility] Blood BLOOD SPECIMEN / Unknown Lab Venipuncture / Unknown 01/02/2014 11:44 AM CDT 01/02/2014 12:02 PM CDT Isaiah Levy MD LAB - CHEMISTRY ORD ERABLES Performing Organization Address City/[facility] Co de Phone Number [facility] [address] [place] [address] * LIPASE BLOOD (01/02/2014 11:44 AM CDT) Lipase 102 73 - 393 U/L 01/02/2014 12:30 PM CDT [facility] Blood BLOOD SPECIMEN / Unknown Lab Venipuncture / Unknown 01/02/2014 11:44 AM CDT 01/02/2014 12:02 PM CDT Isaiah Levy MD LAB - CHEMISTRY ORD ERABLES Performing Organization Address [facility] de Phone Number [facility] [address] [place] [address] * US ABDOMEN LIMITED (RUQ) (01/02/2014 11:30 AM CDT) Only the most recent of2 resultswithin the time period is included. Anatomical Region Laterality Modality Abdomen Ultrasound 01/02/2014 11:4 7 AM CDT Impressions 01/02/2014 11:48 AM CDT Unremarkable abdominal ultrasound Narrative 01/02/2014 11:48 AM CDT Ultrasound Abdomen Limited Indication: Abdominal pain and vomiting Technique: Zhang scale and color images of the abdomen Findings: The liver is normal. Gallbladder is normal. The Gutierrez's sign was negative. The visualized portions of the pancreas and common bile duct are normal. The right kidney is normal. Procedure Note Katarzyna Hopper MD - 01/02/2014 Ultrasound Abdomen Limited Indication: Abdominal pain and vomiting Technique: Zhang scale and color images of the abdomen Findings: The liver is normal. Gallbladder is normal. The Gutierrez's sign was negative. The visualized portions of the pancreas and common bile duct are normal. The right kidney is normal. IMPRESSION Unremarkable abdominal ultrasound Isaiah Levy MD US ORDERABLES * LAB HISTORICAL RESULTS-ONBASE (03/18/2011) Only the most recent of3 resultswithin the time period is included. 03/18/2011 Historical Provider LAB - CHEMISTRY O BARAK Performing Organization Address [facility] Co de Phone Number [facility] * PATHOLOGY/GENETICS HISTORICAL-ONBASE (02/25/2009) Only the most recent of8 resultswithin the time period is included. 02/25/2009 Historical Provider LAB - CHEMISTRY O BARAK Performing Organization Address [facility] Co de Phone Number [facility] * EKG 12-LEAD (09/10/2008 12:19 PM CDT) Narrative Procedure Note Document, Scanned - 09/02/2008 12:00 AM CDT Transcriptions Document, Scanned - 09/02/2008 12:00 AM CDT Urbano Wolf DO ECG ORDERABLES Care Teams Paster Operator Relationship Specialty Start Date End Date Iftikhar Lopez MD [address] [place] [address] PCP - General 06/10/11
--- OUTSIDE RECORDS SUMMARY | 2024-06-25 07:54 | XMS_ITS | Clinical Summary ---
Author Organization [facility] [employer] Address [address] [address] Care Team Providers Care Firer Marine Name Role Phone Iftikhar Lopez MD Primary Care Provider [phone] Source Comments [facility],non-owned Affiliates and Associated Physician Practices is amultiple site organization consisting of ambulatory clinics and hospital sitesin [place], [place], [place] and [place]. This disclosure is being madepursuant to the Care Everywhere program and may not contain all information available regarding this patient. Last updated 18.[facility] Social History Tobacco Use Types Packs/Day Years [...] 07/30/2014 10:48 AM CDT Plan of Treatment Health Maintenance Due Date Last Done Comments BONE DENSITY TESTING 1960 COLOGUARD (AGES 45-75) - COL ON CA SCREENING 1958 COLON MONITORING 1958 COLONOSCOPY - COLON CA SCREENING 1958 CT COLONOGRAPHY - COLON CA SCREENING 1958 Colorectal Cancer Screening 1958 FIT - COLON CA SCREENING 1958 FLEX SIG - COLON CA SCREENING 1958 LIPID TESTING 1958 MAMMOGRAM 1958 HEPATITIS C SCREENING 04/24/1976 DTAP/TDAP/TD VACCINES (1 - Tdap) 1977 PNEUMOCOCCAL VACCINE 50+ (1 of 1 - PCV) 2008 ZOSTER VACCINE (1 of 2) 2008 COVID-19 VACCINE (1 - 2023-2 5 season) 2024 INFLUENZA VACCINE (#1) 2024 DEPRESSION SCREENING 05/02/2024 Respiratory Syncytial Virus (RSV) Vaccine Pt: or over 60 yrs (1 - 1-dose 75+ series) 2033 HEPATITIS B VACCINE Aged Out No longe r eligible based on patient's age to complete this topic HIB VACCINE Aged Out No longer eligi ble based on patient's age to complete this topic HPV VACCINE Aged Out No longer eligi ble based on patient's age to complete this topic MENINGOCOCCAL (Group B) VACCINE Aged Out No longer eligible based on patient's age to complete this topic MENINGOCOCCAL VACCINE Aged Out No clair tera eligible based on patient's age to complete this topic Care Teams Firer Marine Relationship Specialty Start Date End Date Iftikhar Lopez MD [address] [place] [address] PCP - General 06/10/11
--- OUTSIDE RECORDS SUMMARY | 2024-06-25 07:54 | XMS_ITS | Encounter Summary ---
Author Organization [facility] Address [address] [place] [address] Care Team Providers Care Director Supply Name Role Phone Unavailable Primary Care Provider Unavailabl e Encounter Details Date Type Department Care Team (Late st Contact Info) Description 11/16/1999 Outpatient Historical Division of Neurology [address] [address] Cirilo Dixon MD [address] [facility] [address] [place] [address] Social History Tobacco Use Types Packs/Day Years Used Date Smoking Tobacco: Never Assessed Comments Unknown Sex and Gender Information Value Date Recorded Sex Assigned at Not on file 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
--- OUTSIDE RECORDS SUMMARY | 2024-06-25 07:54 | XMS_ITS | Encounter Summary ---
Author Organization [facility] Health Address [address] [facility] [place] [address] Care Team Providers Care Gis Instructor Name Role Phone Iftikhar Lopez MD Primary Care Provider [phone] Encounter Details Date Type Department Care Team (Late Contact [facility]) Description 03/13/2018 Lab Requisition [facility] Care DermPath Lab [address] [facility], [place] [address] Simran Oconnell MD [address] [facility] 3 [place] [address] Social History Tobacco Use Types Packs/Day Years [...] Associated Diagnosis Comments DERMATOPATH TECHNICAL REPORT Routine 03/10/2018 12:00 AM RELAY MOTORMAN documented in this encounter Results * DERMATOPATH TECHNICAL REPORT (03/10/2018 12:00 AM RELAY MOTORMAN) Case Report Dermatopathology Report Case: [id number] Authorizing Provider: Simran Oconnell MD Collected: 03/10/2018 12:00 AM Pathologist: Kristal Barrientos MD Received: 03/13/2018 07:12 AM Specimen: Skin, left upper arm 8 10:41 AM RELAY MOTORMAN DERMATOPATHOLOGY LABORATORY Clinical History R/O SCC, irritated, non-healing. Check margins. 10:41 AM [facility] DERMATOPATHOLOGY LABORATORY Gross Description Specimen A: Received is one formalin filled container labeled with the patient's name and designated left upper arm. The specimen consists of a shave measuring 8d3c5sh. Jar 0. [facility] Dermatopathology Laboratory performed the technical component only. 10:41 AM [facility] DERMATOPATHOLOGY LABORATORY Embedded Images 10:41 AM [facility] DERMATOPATHOLOGY LABORATORY DISCLAIMER An external and internal positive and negative controls are appropriate for the histochemical, immunohistochemical and immunofluorescence stain(s) in this case (if any), except where stated explicitly. The performance characteristics of the stain(s) cited in this report were developed and its performance characteristic determined by the Dermatopathology Laboratory at [facility]. These tests need not be, and therefore are not, approved by the [place] Food and Drug Administration. The tests are used for clinical purposes. 10:41 AM [facility] DERMATOPATHOLOGY LABORATORY Pathology/Cytolog y TISSUE SPECIMEN FROM SKIN / Unknown 03/10/2018 03/13/2018 7:12 AM [facility] Simran Oconnell MD LAB - PATHOLOGY/CYT OLOGY ORDERABLES DERMATOPATHOLOGY LABORATORY [facility] - Department of Dermatology [address] [place] [address], 5th Floor Lab [address] [phone] documented in this encounter Visit Diagnoses Not on filedocumented in this encounter Care Teams Gis Instructor Relationship Specialty Start Date End Date Iftikhar Lopez MD [address] [place] [address] [address] [place] [address] PCP - General 06/10/11 documented as of this encounter
--- OUTSIDE RECORDS SUMMARY | 2024-06-25 07:54 | XMS_ITS | Encounter Summary ---
Author Organization [facility] Health Address [address] [facility] [place] [address] Care Team Providers Care Precision Lens Grinder Apprentice Name Role Phone Iftikhar Lopez MD Primary Care Provider [phone] Encounter Details Date Type Department Care Team (Late [facility]) Description 05/09/[address] [facility] DermPath Lab [address] [facility], [place] [address] Simran Oconnell MD [address] [facility] 3 [place] [address] Social History Tobacco Use Types Packs/Day Years Used Date Smoking Tobacco: Never Assessed Sex and Gender Information Value Date Recorded Sex Assigned at Not on file Gender Identity Not on file Sexual Orientation Not on file documented as of this encounter Plan of Treatment Not on file documented as of this encounter Procedures Procedure Name Priority Date/Time Associated Diagnosis Comments DERMATOPATHOLOGY Routine 05/08/2019 12:0 0 AM FIRST ASSISTANT documented in this encounter Results * DERMATOPATHOLOGY (05/08/2019 12:00 AM FIRST ASSISTANT) Case Report Dermatopathology Report Case: [id number] Authorizing Provider: Simran Oconnell MD Collected: 05/08/2019 12:00 AM Ordering Location: [facility] DermPath Lab Received: 05/09/2019 08:10 AM Pathologist: Armani Bautista MD Specimen: Skin, right mid back 0 3:39 PM FIRST ASSISTANT DERMATOPATHOLOGY LABORATORY Final Diagnosis Specimen A. SKIN, right mid back: SQUAMOUS CELL CARCINOMA, ACANTHOLYTIC TYPE (C44.529) 0 3:39 PM [facility] DERMATOPATHOLOGY LABORATORY Clinical History R/O SK, irritated. 0 3:39 PM [facility] DERMATOPATHOLOGY LABORATORY Gross Description Specimen A: Received is one formalin filled container labeled with the patient's name and designated right mid back. The specimen consists of a shave measuring 88k3x2et, bisected. Jar 0. 0 3:39 PM [facility] DERMATOPATHOLOGY LABORATORY Microscopic Description Specimen A. SKIN, right mid back: Sections show skin with irregularly shaped nests of keratinocytes with evidence of cornification. In some nests, there is loss of cohesion between the neoplastic cells, as well as individual dyskeratotic cells that lack intercellular bridges. 0 3:39 PM [facility] DERMATOPATHOLOGY LABORATORY Disclaimer An external and internal positive and negative controls are appropriate for the histochemical, immunohistochemical and immunofluorescence stain(s) in this case (if any), except where stated explicitly. The performance characteristics of the stain(s) cited in this report were developed and its performance characteristic determined by the Dermatopathology Laboratory at [facility], directed by Dr. Libra Bautista. These tests need not be, and therefore are not, approved by the [place] Food and Drug Administration. The tests are used for clinical purposes. Billing Codes Specimen Charges Stain Charges 35830 1 0 3:39 PM [facility] DERMATOPATHOLOGY LABORATORY Embedded Images 0 3:39 PM [facility] DERMATOPATHOLOGY LABORATORY Pathology/Cytolog y TISSUE SPECIMEN FROM SKIN / Unknown 05/08/2019 05/09/2019 8:10 AM FIRST ASSISTANT Simran Oconnell MD LAB - PATHOLOGY/CYT OLOGY ORDERABLES DERMATOPATHOLOGY LABORATORY [facility] - Department of Dermatology [address] [place] [address], 5th Floor Lab [address] [phone] documented in this encounter Visit Diagnoses Not on filedocumented in this encounter Care Teams Precision Lens Grinder Apprentice Relationship Specialty Start Date End Date Iftikhar Lopez MD [address] [facility] [address] [place] [id number] PCP - General 06/10/11 documented as of this encounter
--- OUTSIDE RECORDS SUMMARY | 2024-06-25 07:54 | XMS_ITS | Encounter Summary ---
Author Organization [facility] Health Address [address] [facility] [place] [address] Care Team Providers Care Electric Motor Tester Assembler Name Role Phone Iftikhar Lopez MD Primary Care Provider [phone] Encounter Details Date Type Department Care Team (Late Contact [facility]) Description 02/28/2024 Lab Requisition [facility] - DermPath Lab [address] [facility], [place] [address] Clarice Page MD [address] [facility] 3 [place] [address] Social History Tobacco Use Types Packs/Day Years Used Date Smoking Tobacco: Never Assessed Sex and Gender Information Value Date Recorded Sex Assigned at Not on file Gender Identity Not on file Sexual Orientation Not on file documented as of this encounter Plan of Treatment Not on file documented as of this encounter Procedures Procedure Name Priority Date/Time Associated Diagnosis Comments DERMATOPATHOLOGY Routine 02/28/2024 3:12 PM CDT documented in this encounter Results * DERMATOPATHOLOGY (02/28/2024 3:12 PM CDT) Case Report Dermatopathology Report Case: [id number] Authorizing Provider: Clarice Page MD Collected: 02/28/2024 03:12 PM Ordering Location: [facility] Physician [facility] - Received: 02/29/2024 11:51 AM DermPath Lab Pathologist: Anat Luis MD Specimens: A) - Skin, left upper lip B) - Skin, right calf C) - Skin, right hand 2:13 PM [facility] DERMATOPATHOLOGY LABORATORY Final Diagnosis Specimen A. SKIN, left upper lip: BASAL CELL CARCINOMA, INFILTRATIVE PATTERN (C44.01) Specimen B. SKIN, right calf: SQUAMOUS CELL CARCINOMA IN SITU (HERZOG'S DISEASE) (D04.71) Specimen C. SKIN, right hand: HYPERTROPHIC ACTINIC KERATOSIS (L57.0) 2:13 PM [facility] DERMATOPATHOLOGY LABORATORY Clinical History [place] papule r/o BCC vs SCC 2:13 PM [facility] DERMATOPATHOLOGY LABORATORY Gross Description Specimen A: [...] shave biopsy measuring 6x5x1 mm. Jar 0. 2:13 PM [facility] DERMATOPATHOLOGY LABORATORY Microscopic Description Specimen A. [...] disorderly maturation of keratinocytes with nuclear pleomorphism. 2:13 PM [facility] DERMATOPATHOLOGY LABORATORY Disclaimer An external and internal positive and negative controls are appropriate for the histochemical, immunohistochemical and immunofluorescence stain(s) in this case (if any), except where stated explicitly. The performance characteristics of the stain(s) cited in this report were developed and its performance characteristic determined by the Dermatopathology Laboratory at [facility], directed by Dr. Libra Bautista. These tests need not be, and therefore are not, approved by the [place] Food and Drug Administration. The tests are used for clinical purposes. Billing Codes Specimen Charges Stain Charges 66431 59457 00572 1 1 1 4 2:13 PM CDT [...] LAB - PATHOLOGY/CYTO LOGY ORDERABLES DERMATOPATHOLOGY LABORATORY [facility] - Department of Dermatology [facility] Medicine [address] [place] [address], [address]rd Floor [address] [phone] documented in this encounter Visit Diagnoses Not on filedocumented in this encounter Care Teams Electric Motor Tester Assembler Relationship Specialty Start Date End Date Iftikhar Lopez MD [address] [place] [address] [address] [place] [address] PCP - General 06/10/11 documented as of this encounter
--- OUTSIDE RECORDS SUMMARY | 2024-06-25 07:54 | XMS_ITS | Encounter Summary ---
Author Organization [facility] Health Address [address] [facility] [place] [address] Care Team Providers Care Content Production Specialist Name Role Phone Iftikhar Lopez MD Primary Care Provider [phone] Encounter Details Date Type Department Care Team (Late [facility]) Description 02/11/2020 Lab Requisition [facility] DermPath Lab [address] [facility], [place] [address] Simran Oconnell MD [address] [facility] 3 [place] [address] Social History Tobacco Use Types Packs/Day Years Used Date Smoking Tobacco: Never Assessed Sex and Gender Information Value Date Recorded Sex Assigned at Not on file Gender Identity Not on file Sexual Orientation Not on file documented as of this encounter Plan of Treatment Not on file documented as of this encounter Procedures Procedure Name Priority Date/Time Associated Diagnosis Comments DERMATOPATHOLOGY Routine 02/07/2020 12:0 0 AM CDT documented in this encounter Results * DERMATOPATHOLOGY (02/07/2020 12:00 AM CDT) Case Report Dermatopathology Report Case: [id number] Authorizing Provider: Simran Oconnell MD Collected: 02/07/2020 12:00 AM Ordering Location: [facility] DermPath Lab Received: 02/11/2020 11:43 AM Pathologist: Armani Bautista MD Specimens: A) - Skin, central chest sup B) - Skin, central chest inf 0 12:04 PM T DERMATOPATHOLOGY LABORATORY Final Diagnosis Specimen A. SKIN, central chest sup: HYPERPLASTIC (HYPERTROPHIC) ACTINIC KERATOSIS (L57.0) OVERLYING CUTANEOUS HORN (L85.8) Specimen B. SKIN, central chest inf: SQUAMOUS CELL CARCINOMA IN SITU (HERZOG'S DISEASE) (D04.5) OVERLYING CUTANEOUS HORN (L85.8) 0 12:04 PM T DERMATOPATHOLOGY LABORATORY Clinical History A-B: R/O SCC, irritated 0 12:04 PM T DERMATOPATHOLOGY LABORATORY Gross Description Specimen A: Received is one formalin filled container labeled with the patient's name and designated central chest sup. The specimen consists of a shave biopsy measuring 8x6x2 mm. Jar 0. Specimen B: Received is one formalin filled container labeled with the patient's name and designated central chest inf. The specimen consists of a shave biopsy measuring 7x7x2 mm. Jar 0. 0 12:04 PM CDT DERMATOPATHOLOGY LABORATORY Microscopic Description Specimen A. SKIN, central chest sup: There is hyperkeratosis alternating with parakeratosis. There is epidermal hyperplasia with disorderly maturation of keratinocytes with nuclear pleomorphism confined to the lower half of the epidermis. There is a column of marked compact hyperkeratosis. Specimen B. SKIN, central chest inf: The epidermis shows parakeratosis, full thickness disorderly maturation of keratinocytes, mitoses at different levels, and dyskeratotic cells. There is a column of marked compact hyperkeratosis. 0 12:04 PM T DERMATOPATHOLOGY LABORATORY Disclaimer An external and internal positive and negative controls are appropriate for the histochemical, immunohistochemical and immunofluorescence stain(s) in this case (if any), except where stated explicitly. The performance characteristics of the stain(s) cited in this report were developed and its performance characteristic determined by the Dermatopathology Laboratory at [facility], directed by Dr. Libra Bautista. These tests need not be, and therefore are not, approved by the [place] Food and Drug Administration. The tests are used for clinical purposes. Billing Codes Specimen Charges Stain Charges 38264 34755 1 1 0 12:04 PM CDT DERMATOPATHOLOGY LABORATORY Embedded Images 0 12:04 PM CDT DERMATOPATHOLOGY LABORATORY Pathology/Cytology TISSUE SPECIMEN FROM SKIN / Unknown 02/07/2020 02/11/2020 11:43 AM CDT Miscellaneous samples (specimen) TISSUE SPECIMEN FROM SKIN / Unknown 02/07/2020 02/11/2020 11:43 AM CDT Simran Oconnell MD LAB - PATHOLOGY/CYT OLOGY ORDERABLES DERMATOPATHOLOGY LABORATORY [facility] - Department of Dermatology [facility] [address] [place] [address], [address] [phone] documented in this encounter Visit Diagnoses Not on filedocumented in this encounter Care Teams Content Production Specialist Relationship Specialty Start Date End Date Iftikhar Lopez MD [address] [facility] [address] [place] [id number] PCP - General 06/10/11 documented as of this encounter
--- OUTSIDE RECORDS SUMMARY | 2024-06-25 07:54 | XMS_ITS | Encounter Summary ---
Author Organization [facility] Health Address [address] [facility] [place] [address] Care Team Providers Care Oil Burner Name Role Phone Iftikhar Lopez MD Primary Care Provider [phone] Encounter Details Date Type Department Care Team (Late [facility]) Description 06/14/2023 Lab Requisition [facility] - DermPath Lab [address] [facility], [place] [address] Simran Oconnell MD [address] [facility] 3 [place] [address] Social History Tobacco Use Types Packs/Day Years Used Date Smoking Tobacco: Never Assessed Sex and Gender Information Value Date Recorded Sex Assigned at Not on file Gender Identity Not on file Sexual Orientation Not on file documented as of this encounter Plan of Treatment Not on file documented as of this encounter Procedures Procedure Name Priority Date/Time Associated Diagnosis Comments DERMATOPATHOLOGY Routine 06/14/2023 10:1 9 AM RIVETING MACHINE OPERATOR AUTOMATIC documented in this encounter Results * DERMATOPATHOLOGY (06/14/2023 10:19 AM RIVETING MACHINE OPERATOR AUTOMATIC) Case Report Dermatopathology Report Case: [id number] Authorizing Provider: Simran Oconnell MD Collected: 06/14/2023 10:19 AM Ordering Location: [facility] DermPath Lab Received: 06/15/2023 02:01 PM Pathologist: Anat Luis MD Specimens: A) - Skin, right breast B) - Skin, left upper arm C) - Skin, mid chest 3:44 PM [facility] DERMATOPATHOLOGY LABORATORY Final Diagnosis Specimen A. SKIN, right breast: PIGMENTED SEBORRHEIC KERATOSIS (L82.1) Specimen B. SKIN, left upper arm: ACTINIC KERATOSIS, INFLAMED (L57.0) Specimen C. SKIN, mid chest: SQUAMOUS CELL CARCINOMA IN SITU, PRESENT AT THE BASE OF THE SPECIMEN (D04.5) (see microscopic description and comment) 3:44 PM [facility] DERMATOPATHOLOGY LABORATORY Clinical History A: SK vs. Atypical Nevi B: R/o SCC C: R/o SCC vs. HAK 3:44 PM [facility] DERMATOPATHOLOGY LABORATORY Gross Description Specimen A: Received is one formalin filled container labeled with the patient's name and designated right breast. The specimen consists of a shave biopsy measuring 6x5x1 mm. Jar 0. Specimen B: Received is one formalin filled container labeled with the patient's name and designated left upper arm. The specimen consists of a shave biopsy measuring 6x5x1 mm. Jar 0. Specimen C: Received is one formalin filled container labeled with the patient's name and designated mid chest. The specimen consists of a shave biopsy measuring 5x5x2 mm. Jar 0. 3:44 PM [facility] DERMATOPATHOLOGY LABORATORY Microscopic Description Specimen A. SKIN, right breast: Sections show an acanthotic lesion composed of relatively uniform keratinocytes. There is hyperkeratosis and pseudo horn cysts. Pigment is present in the keratinocytes composing this tumor. Specimen B. SKIN, left upper arm: There is focal parakeratosis. The lower half of the epidermis shows disorderly maturation of keratinocytes with nuclear pleomorphism. The lesion is inflamed. Specimen C. SKIN, mid chest: The epidermis shows parakeratosis, full thickness disorderly maturation of keratinocytes, mitoses at different levels, and dyskeratotic cells. The lesion extends to the base of the biopsy. COMMENT: An invasive squamous cell carcinoma cannot be ruled out. 3:44 PM [facility] DERMATOPATHOLOGY LABORATORY Disclaimer An external and internal positive and negative controls are appropriate for the histochemical, immunohistochemical and immunofluorescence stain(s) in this case (if any), except where stated explicitly. The performance characteristics of the stain(s) cited in this report were developed and its performance characteristic determined by the Dermatopathology Laboratory at [facility], directed by Dr. Libra Bautista. These tests need not be, and therefore are not, approved by the [place] Food and Drug Administration. The tests are used for clinical purposes. Billing Codes Specimen Charges Stain Charges 43519 97979 11632 1 1 1 4 3:44 PM RIVETING MACHINE OPERATOR AUTOMATIC DERMATOPATHOLOGY LABORATORY Embedded Images 4 3:44 PM RIVETING MACHINE OPERATOR AUTOMATIC DERMATOPATHOLOGY LABORATORY Pathology/Cytology TISSUE SPECIMEN FROM SKIN / Unknown 06/14/2023 10:19 AM RIVETING MACHINE OPERATOR AUTOMATIC 06/15/2023 2:01 PM RIVETING MACHINE OPERATOR AUTOMATIC Miscellaneous samples (specimen) TISSUE SPECIMEN FROM SKIN / Unknown 06/14/2023 10:19 AM RIVETING MACHINE OPERATOR AUTOMATIC 06/15/2023 2:01 PM RIVETING MACHINE OPERATOR AUTOMATIC Miscellaneous samples (specimen) TISSUE SPECIMEN FROM SKIN / Unknown 06/14/2023 10:19 AM RIVETING MACHINE OPERATOR AUTOMATIC 06/15/2023 2:01 PM RIVETING MACHINE OPERATOR AUTOMATIC Simran Oconnell MD LAB - PATHOLOGY/CYT OLOGY ORDERABLES DERMATOPATHOLOGY LABORATORY [facility] - Department of Dermatology [address], [address] [phone] documented in this encounter Visit Diagnoses Not on filedocumented in this encounter Care Teams Oil Burner Relationship Specialty Start Date End Date Iftikhar Lopez MD [address] [place] [address] [address] [place] [phone] PCP - General 06/10/11 documented as of this encounter
--- OUTSIDE RECORDS SUMMARY | 2024-06-25 07:54 | XMS_ITS | Encounter Summary ---
Author Organization [facility] Health Address [address] [place] [address] Care Team Providers Care Music Writer Name Role Phone Iftikhar Lopez MD Primary Care Provider [phone] Encounter Details Date Type Department Care Team (Late [facility]) Description 07/05/2019 Lab Requisition [facility] DermPath Lab [address] [place] [address] Simran Oconnell MD [address] [address] [place] [address] Social History Tobacco Use Types Packs/Day Years Used Date Smoking Tobacco: Never Assessed Sex and Gender Information Value Date Recorded Sex Assigned at Not on file Gender Identity Not on file Sexual Orientation Not on file documented as of this encounter Plan of Treatment Not on file documented as of this encounter Procedures Procedure Name Priority Date/Time Associated Diagnosis Comments DERMATOPATHOLOGY Routine 07/04/2019 12:0 0 AM ARMATURE WINDER REPAIR HELPER documented in this encounter Results * DERMATOPATHOLOGY (07/04/2019 12:00 AM ARMATURE WINDER REPAIR HELPER) Case Report Dermatopathology Report Case: [id number] Authorizing Provider: Simran Oconnell MD Collected: 07/04/2019 12:00 AM Ordering Location: [facility] DermPath Lab Received: 07/05/2019 06:41 AM Pathologist: Armani Bautista MD Specimen: Skin, right mid back 0 12:20 PM ARMATURE WINDER REPAIR HELPER DERMATOPATHOLOGY LABORATORY Final Diagnosis Specimen A. SKIN, right mid back: DERMAL SCAR RESIDUAL SQUAMOUS CELL CARCINOMA NOT IDENTIFIED (L90.5) 0 12:20 PM [facility] DERMATOPATHOLOGY LABORATORY Clinical History R/O SCC, biopsy proven. Previous Bx: [id number]. 0 12:20 PM [facility] DERMATOPATHOLOGY LABORATORY Gross Description Specimen A: Received is one formalin filled container labeled with the patient's name and designated right mid back. The specimen consists of a non-oriented ellipse of skin measuring [id number]. The epidermal surface consists of a centrally located 3x3mm previous biopsy site. The margin is inked green. The 12 o'clock and 6 o'clock tips are submitted in cassette 1. The remainder of the ellipse is serially sectioned and submitted in cassettes 2-3. Jar 0. 0 12:20 PM [facility] DERMATOPATHOLOGY LABORATORY Microscopic Description Specimen A. SKIN, right mid back: There are fibroblasts and collagen bundles oriented parallel to the skin surface. There are elongated blood vessels, some of which are oriented perpendicular to the skin surface. No residual squamous cell carcinoma is identified. 0 12:20 PM [facility] DERMATOPATHOLOGY LABORATORY Disclaimer An external and internal positive and negative controls are appropriate for the histochemical, immunohistochemical and immunofluorescence stain(s) in this case (if any), except where stated explicitly. The performance characteristics of the stain(s) cited in this report were developed and its performance characteristic determined by the Dermatopathology Laboratory at [facility], directed by Dr. Libra Bautista. These tests need not be, and therefore are not, approved by the [place] Food and Drug Administration. The tests are used for clinical purposes. Billing Codes Specimen Charges Stain Charges 97252 1 0 12:20 PM [facility] DERMATOPATHOLOGY LABORATORY Embedded Images 0 12:20 PM [facility] DERMATOPATHOLOGY LABORATORY Pathology/Cytolog y TISSUE SPECIMEN FROM SKIN / Unknown 07/04/2019 07/05/2019 6:41 AM ARMATURE WINDER REPAIR HELPER Simran Oconnell MD LAB - PATHOLOGY/CYT OLOGY ORDERABLES DERMATOPATHOLOGY LABORATORY [facility] - Department of Dermatology [address] [place] [address], [facility] [phone] documented in this encounter Visit Diagnoses Not on filedocumented in this encounter Care Teams Music Writer Relationship Specialty Start Date End Date Iftikhar Lopez MD [address] [place] [id number] PCP - General 06/10/11 documented as of this encounter
--- OUTSIDE RECORDS SUMMARY | 2024-06-25 07:55 | XMS_ITS | Referral Summary ---
[facility] Address [address] [place] [address] Care Team Providers Care Vault Clerk Name Role Phone Valerie Jason MD Primary Care Provid er Encounters Date Type Department Care Team Description 05/09/2024 Orders Only [facility] [address] [place] [address] Katy Melo MD Squamous cell carcinoma of skin of left upper limb, including shoulder 05/08/2024 8:15 AM SPLICER APPRENTICE Procedure visit [facility] Dermatology [address] [place] [address] Katy Melo MD Squamous cell carcinoma of skin of left upper limb, including shoulder (Primary Dx); 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 04/18/2024 Orders Only [facility] [address] [place] [address] Katy Melo MD Neoplasm of unspecified behavior of bone, soft tissue, and skin 04/18/2024 9:00 AM SPLICER APPRENTICE Procedure visit [facility] Dermatology [facility] [facility] [address] [place] [address] Katy Melo MD Basal cell carcinoma (BCC) of skin of left upper lip (Primary Dx); Neoplasm of unspecified behavior of bone, soft tissue, and skin from Last 3 Months Allergies Active Allergy Reactions Criticality Noted Date Comments Estrogens Other (See comments) Low 06/20/2020 Medications ALPRAZolam (XANAX) 0.5 mg tablet 5 8 Active DIVIGEL 1 mg/gram (0.1 %) gel in packet 8 Active INTRAROSA 6.5 mg insert INSERT 1 SUPPOSITORY VAGINALLY ONCE DAILY AT BEDTIME 0 9 Active buPROPion XL (WELLBUTRIN XL) 150 mg 24 hr tablet 1 Active Xiidra 5 % dropperette 1 Active pen needle, diabetic 31 gauge x 07/15 needleIndication s:Age-related osteoporosis without current pathological fracture Use Daily WITH TYMLOS PEN 100 each 1 2 Active Additional Information Patient not taking.Reported on 12/16/2023 cholecalciferol (VITAMIN D-3) 1,000 unit capsule Take 1 capsule (1,000 Units total) by mouth daily Active Accutane 40 mg capsule 2 Active cephalexin (KEFLEX) 500 mg capsule Take 500 mg by mouth 3 (three) times a day 2 Active tinidazole (TINDAMAX) 500 mg tablet TAKE 4 TABLETS BY MOUTH ONCE DAILY FOR 2 DAYS 3 Active famotidine (PEPCID) 20 mg tablet Take 1 tablet (20 mg total) by mouth 2 (two) times a day 3 Active zoledronic dluk-oosqzndR-vn ter (zoledronic acid) 5 mg/100 mL piggyback Active Active Problems Problem Noted Date Diagnosed Date Anxiety 02/04/2022 Hyperlipidemia 02/04/2022 Squamous cell carcinoma of skin 02/04/2022 Age-related osteoporosis wit hout current pathological fracture 11/10/2021 Convulsion 01/16/2021 Thyroid nodule 06/30/2020 Metatarsal stress fracture with nonunion 020 Overview (11/13/2019): Added automatically from request for surgery [id number] Chest pain 07/05/2019 Shortness of breath 07/05/2019 Gastro-esophageal reflux disease with esophagiti s 08/24/2018 Premature atrial contraction 09/15/2013 Overview (08/05/2016): ATRIAL PREMATURE BEATS Ventricular premature beats 09/15/2013 Overview (08/05/2016): PVCs Palpitations 09/15/2013 Overview (08/05/2016): PALPITATIONS Abnormal electrocardiography 09/15/2013 Overview (08/05/2016): ABNORM ELECTROCARDIOGRAM Osteoarthritis of knee 07/26/2011 Actinic keratosis 07/04/2008 Social History Tobacco Use Types Packs/Day Years Used Date Smoking Tobacco: Never Smokeless Tobacco: Never Alcohol Use Standard Drinks/Week Comments No 0 (1 standard drink = 0.6 oz pur e alcohol) Personal Safety Answer Date Recorded Getting School Help Needed Not on file 05/01 Comments Unknown Sex and Gender Information Value Date Recorded Sex Assigned at Not on file Legal Sex Female 12:57 AM SPLICER APPRENTICE Gender Identity Not on file Sexual Orientation Not on file Last Filed Vital Signs Vital Sign Reading Time Taken Comments Blood Pressure 115/65 11/29/2022 10:42 AM CDT Pulse 62 11/29/2022 10:42 AM CDT Temperature 36.8 C (98.2 F) 11/29/2022 10:42 AM CDT Respiratory Rate 16 11/29/2022 10:42 AM CDT Oxygen Saturation 98% 01/15/2021 9:36 AM CDT Inhaled Oxygen Concentration - - Weight 64.6 kg (142 lb 8 oz) 12/16/2023 1:56 PM CDT Height 176.5 cm (5' 9.5 ) 12/16/2023 1:56 PM CDT Body Mass Index 20.74 12/16/2023 1:56 PM CDT Plan of Treatment Not on file Procedures Procedure Name Priority Date/Time Associated Diagnosis Comments SURGICAL PATHOLOGY Routine 05/08/2024 12:00 AM SPLICER APPRENTICE Squamous cell carcinoma of skin of left upper limb, including shoulder SURGICAL PATHOLOGY Routine 04/18/2024 12:00 AM SPLICER APPRENTICE Neoplasm of unspecified behavior of bone, soft tissue, and skin DEXA TBS AXIAL SKELETON BONE DENSITY 1 OR MORE SITES Schedule Routine, Read Routine (OP Routine) 12/16/2023 2:27 PM CDT Age-related osteoporosis without current pathological fracture from Last 3 Months or Most Recently Relevant to Health Maintenance Results * Surgical pathology (05/08/2024 12:00 AM SPLICER APPRENTICE) Tissue (Skin, shave biopsy) 05/08/2024 05/09/2024 6:47 AM SPLICER APPRENTICE [facility] DERMATOPATHOLOGY CENTER - 05/10/2024 1:43 PM SPLICER APPRENTICE EPIC results best viewed via link to PDF [facility] Dermatopathology [address], [address], [place] [address] [email or web address] Note to Patients: This report may contain a detailed description of human tissue sent by a health care provider to the laboratory for pathologic evaluation. The content of this report is essential for diagnosis and may provide important critical findings. This information may be unfamiliar to patients to review without a medical professional present. It is advised that the patient review this report in the presence of a health care provider who can answer questions and explain the details. FINAL REPORT Patient Information: PATIENT NAME: TINO PLATA SEX: F : 1960 (Age: 64) Specimen Information: COLLECTED: 05/08/2024 RECEIVED: 05/09/2024 REPORTED: 05/10/2024 Submitting Physician Information: Katy Keenan M.D. [facility], [address], [address] [place] [address], DERMATOPATHOLOGY REPORT RESULTS DIAGNOSIS: SKIN, LEFT SHOULDER, SHAVE BIOPSY: HYPERPLASTIC ACTINIC KERATOSIS ag/ajrr By this signature, I attest that the above diagnosis is based upon my personal examination of the slides(and/or other material indicated in the diagnosis). Khoi Rodrigues M.D. Report Electronically Reviewed and Signed Out By Khoi Rodrigues M.D. 05/10/2024 13:43:26 CLINICAL INFORMATION SCC SPECIMEN DATA MICROSCOPIC DESCRIPTION: Buds of atypical keratinocytes emanate from the lower portions of a thickened epidermis with a dense orthokeratotic and parakeratotic scale. (L57.0) GROSS DESCRIPTION: Received in a formalin-containing bottle is a superficial fragment of dome- shaped, pale ring, finely scaling, hair-bearing skin measuring 0.8 by 0.7 by 0.2 cm. The surgical margin is inked blue.The specimen bears a centrally located, ring- yellow, scaly, slightly crusted area measuring 0.5 by 0.5 cm. The specimen is sectioned into 3 pieces and submitted entirely in a single cassette. Due to shrinkage, measurements may be different than those at the time of procedure. exr/mxf ICD-9 A; ZSD.27 ZSD.1474 Clerical Data A; 67440 The characteristics of special, immunohistochemical, and immunofluorescence stains and in-situ hybridization tests performed by the [facility] were deemed acceptable in ongoing quality system manager measures and in compliance with regulations drawn from the Clinical Laboratory Improvement Act bz4218 (CLIA '88). Control reactions for all stains performed were deemed adequate and appropriate by a pathologist prior to evaluation of patient tissue. Some diagnoses were rendered with the assistance of laboratory-developed tests utilizing analyte-specific reagents; the performance characteristic of these tests were determined by [facility] and are not cleared or approved by the [place] Food an Drug administration. Laboratory developed test may only be performed in a facility that is certified by the [facility] as a high-complexity laboratory under CLIA '88. These tests are used for clinical purposes and are not investigational. us Katy Keenan MD LAB PATHOLOGY O RDERABLES Final Result [facility]OPATHOLOGY CENTER [address] [place] [id number] * Surgical pathology (04/18/2024 12:00 AM SPLICER APPRENTICE) Tissue (Skin, shave biopsy) 04/18/2024 04/18/2024 12:59 PM SPLICER APPRENTICE Narrative DERMATOPATHOLOGY CENTER - 04/20/2024 5:09 PM SPLICER APPRENTICE EPIC results best viewed via link to PDF [facility] Dermatopathology Center [address], [address], [place] [address] [email or web address] Note to Patients: This report may contain a detailed description of human tissue sent by a health care provider to the laboratory for pathologic evaluation. The content of this report is essential for diagnosis and may provide important critical findings. This information may be unfamiliar to patients to review without a medical professional present. It is advised that the patient review this report in the presence of a health care provider who can answer questions and explain the details. FINAL REPORT Patient Information: PATIENT NAME: TINO PLATA SEX: F : 1960 (Age: 63) Specimen Information: COLLECTED: 04/18/2024 RECEIVED: 04/18/2024 REPORTED: 04/20/2024 Submitting Physician Information: Katy Keenan M.D. [facility] ([facility]), [address], [address] [place] [address], DERMATOPATHOLOGY REPORT RESULTS DIAGNOSIS: SKIN, RIGHT BROW, SHAVE BIOPSY: SQUAMOUS CELL CARCINOMA IN SITU dh/spng By this signature, I attest that the above diagnosis is based upon my personal examination of the slides(and/or other material indicated in the diagnosis). Carmelo Treviño MD, PhD Report Electronically Reviewed and Signed Out By Carmelo Treviño MD, PhD 04/20/2024 17:09:44 CLINICAL INFORMATION SCALY ERYTHEMATOUS PAPULE SPECIMEN DATA MICROSCOPIC DESCRIPTION: Atypical keratinocytes are present throughout the entire thickness of the epidermis. (D04.9) GROSS DESCRIPTION: Received in a formalin-containing bottle is a superficial fragment of variegated, pale ring, ring, hair-bearing and finely scaling skin measuring 0.5 by 0.4 by 0.1 cm. The surgical margin is inked blue. The specimen is sectioned into 2 pieces and submitted entirely in a single cassette. Due to shrinkage, measurements may be different than those at time of procedure. exr/tyc ICD-9 A; ZSD.1474 Clerical Data A; 13879 The characteristics of special, immunohistochemical, and immunofluorescence stains and in-situ hybridization tests performed by the [facility] were deemed acceptable in ongoing quality system manager measures and in compliance with regulations drawn from the Clinical Laboratory Improvement Act wp9592 (CLIA '88). Control reactions for all stains performed were deemed adequate and appropriate by a pathologist prior to evaluation of patient tissue. Some diagnoses were rendered with the assistance of laboratory-developed tests utilizing analyte-specific reagents; the performance characteristic of these tests were determined by [facility] and are not cleared or approved by the [place] Food an Drug administration. Laboratory developed test may only be performed in a facility that is certified by the [facility] as a high-complexity laboratory under CLIA '88. These tests are used for clinical purposes and are not investigational. Katy Keenan MD LAB PATHOLOGY O RDERABLES Final Result DERMATOPATHOLOGY CENTER [address] [place] [id number] * Dexa TBS Axial Skeleton Bone Density 1 or more sites (12/16/2023 2:27 PM CDT) Anatomical Region Laterality Modality Wrist, Body N/A Radiographic Li ging Narrative 12/16/2023 3:21 PM CDT Patient Name: Tino Plata Date of : 1960 Date of scan: 12/16/2023 Bone mineral density was performed on a HoloPolwire Discovery Densitometer. Based on machine cross-calibration and precision studies the least significant changes of this densitometer is 0.024 g/cm2 at the spine, 0.020 g/cm2 at the total proximal femur, and 0.014g/cm2 at the forearm. HISTORY: This is a 63 y.o. postmenopausal female with a history of osteoporosis. She reports that she has never smoked. She has never used smokeless tobacco. Currently on treatment with calcium, vitamin D, and zoledronic acid (Reclast) and previously treated with zoledronic acid (Reclast), teriparatide (Forteo), abaloparatide (Tymlos), and denosumab (Prolia). INDICATIONS: Menopause status and history of osteoporosis. FINDINGS: BONE MINERAL DENSITY OF THE LUMBAR SPINE Bone Mineral Density (BMD) of the lumbar spine was measured from L1-L4 and the average density was calculated to be 0.950 gm/cm2. This corresponds to a T-score (standard deviations from the mean of young adults) of -0.9. When compared to the previous study of 11/16/2022 there has been no significant changes in bone density. BONE MINERAL DENSITY OF THE PROXIMAL FEMUR Bone Mineral Density (BMD) of the left hip total was found to be 0.713 gm/cm2. This corresponds to a T-score standard deviations from the mean of young adults of -1.9. Femoral neck is 0.585 gm/cm2 with a T-score (standard deviations from the mean of young adults) of -2.4. When compared to the previous study of 11/16/2022 there has been no significant changes in bone density. SUMMARY: Bone mineral density shows evidence of low bone mass at the proximal femur and moderately increased fracture risk (Osteopenia). There has been no significant changes in bone density since previous measurement. The lumbar spine Trabecular Bone Score is 1.439 which suggests normal bone microarchitecture, compared to the general population. Final decisions regarding diagnostic or therapeutic recommendations should include BMD, TBS, additional clinical risk factors as well the clinical context of the patient. Please see attached TBS results for further details. ADDITIONAL COMMENTS: Postmenopausal Women and Men Over 50: Diagnostic criteria: Osteoporosis: BMD at or below -2.5 T-score; Osteopenia (low bone mass): BMD between -1.0 and -2.5 T-score. If the patient has a history of a fragility fracture, a fracture that occurred with trauma equivalent to a fall from a standing position or less, then the diagnosis is osteoporosis regardless of bone density. The history and data sections of the bone mineral density scan were prepared by Concepcion Sofia) JULIA who is accredited by the International Society of Clinical Densitometry. The overall patient assessment and scan interpretation were performed by Rajni Munroe MD who is certified by the International Society of Clinical Densitometry. [id number] Rajni Munroe MD IMG DXA PROCEDURES Final Resu lt from Last 3 Months or Most Recently Relevant to Health Maintenance Insurance [employer] [place] [employer] [facility] [employer] OPEN ACCESS ANTHEM ACCESS CHOICE Care Teams Vault Clerk Relationship Specialty Start Date End Date Valerie Jason MD [address] [address] PCP - General Internal Medicine 05/04/22
--- OUTSIDE RECORDS SUMMARY | 2024-06-25 07:55 | XMS_ITS ---
Author Organization [facility] Address [address] [place] [address] Care Team Providers Care Resident Services Supervisor Name Role Phone Valerie Jason MD Primary Care Provid er Active Problems Problem Noted Date Diagnosed Date Anxiety 02/04/2022 Hyperlipidemia 02/04/2022 Squamous cell carcinoma of skin 02/04/2022 Age-related osteoporosis wit hout current pathological fracture 11/10/2021 Convulsion 01/16/2021 Thyroid nodule 06/30/2020 Metatarsal stress fracture with nonunion 020 Overview (11/13/2019): Added automatically from request for surgery [id number] Chest pain 07/05/2019 Shortness of breath 07/05/2019 Gastro-esophageal reflux disease with esophagiti s 08/24/2018 Premature atrial contraction 09/15/2013 Overview (08/05/2016): ATRIAL PREMATURE BEATS Ventricular premature beats 09/15/2013 Overview (08/05/2016): PVCs Palpitations 09/15/2013 Overview (08/05/2016): PALPITATIONS Abnormal electrocardiography 09/15/2013 Overview (08/05/2016): ABNORM ELECTROCARDIOGRAM Osteoarthritis of knee 07/26/2011 Actinic keratosis 07/04/2008 Current Treatment and Therapy Plans No current plan information found. Other Current Plans Zoledronic Acid (Reclast) Infusion* Plan Start Date:11/29/2022 Plan Provider:Rajni Munroe MD Linked Problems Age-related osteoporosis wit hout current pathological fracture Treatment Medications No medications scheduled. Past Treatment and Therapy Plans No past plan information found. Lifetime Dose Tracking * Chemical Lifetime Dose Automatic Entry Manual Entr y Fluoro Time 0.1 minutes 0.1 minutes 0 minutes Air kerma at the reference point (Ka,r) 0.816 mGy 0 .816 mGy 0 mGy DLP 170 mGycm 170 mGycm 0 mGycm
--- OUTSIDE RECORDS SUMMARY | 2024-06-25 07:55 | XMS_ITS | CONTINUITY OF CARE DOCUMENT ---
Author Name renata yanez Address Unknown Organization [facility] Address [address] [place] [address] Phone [phone] Care Team Providers Care Hospital Administrative Assistant Name Role Phone Flynn Fuentes DO Unavailable Valerie Jason MD Unavailable Valerie Jason MD Unavailable PROBLEMS Condition Status Date Provider Notes Shortness of breath completed - Flynn Fuentes DO CAD active Flynn Fuentes DO Palpitations active Flynn Fuentes DO Family Hx heart disease active Sarah Fuentes DO Dyspnea on exertion active Flynn Fuentes DO Hypercholesterolemia active Flynn Fuentes DO Pericardial effusion active Flynn Fuentes DO Other pericardial effusion (noninflammatory) completed - Flynn Fuentes DO Chest pain completed - Flynn Fuentes DO ENCOUNTERS Date Type Provider Location Encounter Diag nosis - In-person encounter Office Visit Flynn Fuentes DO [facility] - In-person encounter Office Visit Flynn Fuentes DO [facility] CAD - In-person encounter Office Visit Flynn Fuentes [facility] Office - In-person encounter Office Visit Flynnflower Fuentes [facility] Office Chest painShortness of breathOther pericardial effusion (noninflammatory)Pericardial effusionHypercholesterolemiaDyspnea on exertionFamily Hx heart diseasePalpitations VITAL SIGNS Date Observation Value Provider Body Mass Index (Ratio) 19.94 kg/m2 [facility] oxygen saturation, oximetry 98 % [facility] respiratory rate E&M 16 /min Located within [facility] pulse rate 63 /min [facility] weight E&M 145 [lb_av] [facility] height E&M 71.5 [in_i] [facility] blood pressure, cuff size regular [facility] Body Mass Index (Ratio) 19.94 kg/m2 [facility] blood pressure, diastolic 74 mm[Hg] [facility] blood pressure, systolic 106 mm[Hg] [facility] oxygen saturation, oximetry 96 % [facility] pulse rate 61 /min [facility] respiratory rate E&M 12 /min Located within [facility] weight E&M 145 [lb_av] [facility] blood pressure, cuff size regular [facility] height E&M 71.5 [in_i] [facility] Body Mass Index (Ratio) 19.94 kg/m2 [facility] blood pressure, cuff size regular Ke rri Gruenenfelder blood pressure, diastolic 62 mm[Hg] Ke rri Gruenenfelder blood pressure, systolic 104 mm[Hg] Ker ri Gruenenfelder oxygen saturation, oximetry 97 % Sejal Ceronelder respiratory rate E&M 12 /min Sejal wilkinselder pulse rate 67 /min Sejal Bland lder weight E&M 145 [lb_av] Sejal Bland lder height E&M 71.5 [in_i] Sejal Bland er weight E&M 149 [lb_av] Ambreen chacon Body Mass Index (Ratio) 20.49 kg/m2 Prad eep Khoi Fuentes DO blood pressure, diastolic 77 mm[Hg] Lorena [facility] blood pressure, systolic 115 mm[Hg] Melva [facility] blood pressure, cuff size regular Rylan rret blood pressure, diastolic 77 mm[Hg] Rylan rret blood pressure, systolic 115 mm[Hg] [facility] pulse rate 72 /min Suman y height E&M 71.5 [in_i] Suman y oxygen saturation, oximetry 98 % Suman respiratory rate E&M 12 /min Suman weight E&M 149 [lb_av] Suman ALLERGIES No Known Drug Allergies RESULTS Date Observation Value Provider Reference Range Interpretation Location 7 alanine aminotransferase (SGPT), serum 22 1/L [facility] 6-29 Normal 7 aspartate aminotransferase (SGOT), serum 18 1/L [facility] 10-35 Normal 7 alkaline phosphatase, serum 32 1/L [facility] 37-153 Low 7 bilirubin, serum, total 0.7 mg/dL [facility] 0.2-1.2 Normal 7 albumin/globulin ratio, serum 1.8 (calc) [facility] 1.0-2.5 Normal 7 globulins, serum, total 2.2 G/DL (CALC) [facility] 1.9-3.7 Normal 7 albumin, serum 4.0 g/dL [facility] 3.6-5.1 Normal 7 protein, total, serum 6.2 g/dL [facility] 6.1-8.1 Normal 7 calcium, serum 8.8 mg/dL [facility] 8.6-10.4 Normal 7 carbon dioxide, venous blood 28 mmol/L [facility] 20-32 Normal 7 chloride, serum 105 mmol/L [facility] 98-110 Normal 7 potassium, serum 4.5 mmol/L [facility] 3.5-5.3 Normal 7 sodium, serum 138 mmol/L [facility] 135-146 Normal 7 urea nitrogen/creatinine ratio, serum SEE NOTE: (calc) [facility] 6-22 7 creatinine, serum 0.74 mg/dL [facility] 0.50-1.05 Normal 7 urea nitrogen, blood 19 mg/dL [facility] 7-25 Normal 7 blood glucose, random 84 mg/dL [facility] 65-99 Normal 7 cholesterol, non-HDL, total 110 MG/DL (CALC) [facility] <130 Normal 7 cholesterol/HDL ratio, serum, percent 2.6 (calc) [facility] <5.0 Normal 7 LDL cholesterol, serum 96 MG/DL (CALC) [facility] Normal 7 triglyceride, serum, fasting 53 mg/dL [facility] <150 Normal 7 HDL cholesterol, serum 67 mg/dL [facility] > OR = 50 Normal 7 cholesterol, serum 177 mg/dL [facility] <200 Normal 4 cholesterol, non-HDL, total 131 MG/DL (CALC) [facility] <130 High 4 cholesterol/HDL ratio, serum, percent 3.4 (calc) [facility] <5.0 Normal 4 LDL cholesterol, serum 115 MG/DL (CALC) [facility] High 4 triglyceride, serum, fasting 66 mg/dL [facility] <150 Normal 4 HDL cholesterol, serum 55 mg/dL [facility] > OR = 50 Normal 4 cholesterol, serum 186 mg/dL [facility] <200 Normal 8 thyroid stimulating hormone, serum 0.73 u[IU]/mL [facility] 0.40-4.50 Normal 8 thyroxine, serum, free 1.3 ng/dL [facility] 0.8-1.8 Normal 8 triiodothyronine (T3), serum 118 ng/dL [facility] 76-181 Normal 8 C-reactive protein, by highly sensitive test 1.3 mg/L [facility] Normal 8 basophils as percent of blood leukocytes 0.4 % [facility] Normal 8 eosinophils as percent of blood leukocytes 1.6 % [facility] Normal 8 monocyte count, blood 9.1 % [facility] Normal 8 lymphocyte count, blood 30.0 % [facility] Normal 8 neutrophils as percent of blood leukocytes 58.9 % [facility] Normal 8 basophils, absolute, manual 20 cells/mcL [facility] 0-200 Normal 8 eosinophils, absolute, manual 80 cells/mcL [facility] 15-500 Normal 8 monocytes, absolute, manual 455 cells/mcL [facility] 200-950 Normal 8 lymphocytes, absolute 1500 CELLS/UL [facility] 850-3900 Normal 8 Absolute Neutrophil count 2945 cells/mcL [facility] 5757-7866 Normal 8 mean platelet volume 8.8 fL [facility] 7.5-12.5 Normal 8 platelet count 311 THOUSAND/ UL [facility] 140-400 Normal 8 red blood cell distribution width 13.1 % [facility] 11.0-15.0 Normal 8 mean corpuscular hemoglobin concentration, RBC 33.7 G/DL [facility] 32.0-36.0 Normal 8 mean corpuscular hemoglobin, RBC 29.1 pg [facility] 27.0-33.0 Normal 8 mean corpuscular volume, RBC 86.5 fL [facility] 80.0-100.0 Normal 8 hematocrit, blood 39.2 % [facility] 35.0-45.0 Normal 8 hemoglobin electrophoresis, blood 13.2 [facility] 11.7-15.5 Normal 8 erythrocyte (RBC) count 4.53 MILLION/U L [facility] 3.80-5.10 Normal 8 leukocyte (white blood cells) count, blood 5.0 THOUSAND/ UL [facility] 3.8-10.8 Normal 8 alanine aminotransferase (SGPT), serum 13 1/L [facility] 6-29 Normal 8 aspartate aminotransferase (SGOT), serum 16 1/L [facility] 10-35 Normal 8 alkaline phosphatase, serum 31 1/L [facility] 37-153 Low 8 bilirubin, serum, total 0.7 mg/dL [facility] 0.2-1.2 Normal 8 albumin/globulin ratio, serum 1.6 (calc) [facility] 1.0-2.5 Normal 8 globulins, serum, total 2.5 G/DL (CALC) [facility] 1.9-3.7 Normal 8 albumin, serum 4.0 g/dL [facility] 3.6-5.1 Normal 8 protein, total, serum 6.5 g/dL [facility] 6.1-8.1 Normal 8 calcium, serum 9.0 mg/dL [facility] 8.6-10.4 Normal 8 carbon dioxide, venous blood 27 mmol/L [facility] 20-32 Normal 8 chloride, serum 103 mmol/L [facility] 98-110 Normal 8 potassium, serum 4.3 mmol/L [facility] 3.5-5.3 Normal 8 sodium, serum 135 mmol/L [facility] 135-146 Normal 8 urea nitrogen/creatinine ratio, serum SEE NOTE: (calc) [facility] 6-22 8 creatinine, serum 0.74 mg/dL [facility] 0.50-1.05 Normal 8 urea nitrogen, blood 15 mg/dL [facility] 7-25 Normal 8 blood glucose, random 84 mg/dL [facility] 65-99 Normal 8 NT-pro BNP 126 [facility] <125 High HISTORY OF MEDICATION USE Medication Status Instructions Dates Provider Indications Com ments Aspirin Childrens 81 mg tablet,chewable active Take 1 tablet by mouth once a day Flynn Fuentes DO rosuvastatin 5 mg tablet completed Take 1 tablet by mouth every night - Jamal Garcia Zetia 10 mg tablet active Take 1 tablet by mouth once a day Flynn Fuentes DO estradiol 0.5 mg/0.5 gram (0.1 %) gel in packet active APPLY ONE PACKET TO UPPER THIGH ONCE DAILY. NO FURTHER REFILLS UNTIL SEES PCP ON 08/29/23 Sejal Vinson alprazolam 0.5 mg tablet active TAKE 1 TABLET BY MOUTH AT BEDTIME NEEDED Sejal Vinson isotretinoin unspecified unspecified completed Take 1 capsule by mouth once a day - Sejal Alisson Reclast 5 mg/100 mL piggyback active Infusion once a year SOCIAL HISTORY Date Observation Value Provider smoking status Never smoker FUNCTIONAL STATUS Date Observation Value Provider HRA, CV Assess/Plan, Angina (inactive) Management Plan continue current therapy Flynn Fuentes DO HRA, CV Assess/Plan, Angina (inactive) Management Plan continue current therapy Flynn Fuentes DO INSURANCE PROVIDERS Payer name Policy type / Coverage type [place] [employer] INS Commercial insurance [facility] [id number] ADVANCE DIRECTIVES Name Date DISCUSSED - NO DECISION MADE TREATMENT PLAN Date Name Performer Cardiology: S tress test 07/2023 no ischemia or arrhtyhmia, nearly 10 METS and 10 min on the Yoshi. C oronary ca score: 53 (LM 1, LAD 35, Cx 17, RCA 0) baby aspirin n o angina or cardiac symptoms o n zetia T his visit has been a part of the consistent, comprehensive, and ongoing management of the chronic medical condition(s) listed above for patient. Flynn Fuentes DO Cardiology: L DL 151 trigs 76 in 2/24 L Pa and crp nml in 24. s tarted zetia L abs 12/23: LDL 115, HDL 55 L abs 06/26: LDL 96 Trigs 53, chem ok, LFTs ok d esires not to be on statin did not tolerate rosuvastatin This visit has been a part of the consistent, comprehensive, and ongoing management of the chronic medical condition(s) listed above for patient. Flynnxochitl Fuentes DO Cardiology:Stress te st 07/2023 no ischemia or arrhtyhmia, nearly 10 METS and 10 min on the Yoshi. C oronary ca score: 53 (LM 1, LAD 35, Cx 17, RCA 0) s tart baby aspirin n o angina or cardiac symptoms o n zetia a dding statin very reasonable she is now in agreement low dose Flynn Khoi Fuentes DO Cardiology: L DL 151 trigs 76 in 224 L Pa and crp nml in 24. s tarted zetia L abs 12/23: LDL 115, HDL 55 d esires not to be on statin but now willing to start low dose crestor 5 r echeck 6 mo T his visit has been a part of the consistent, comprehensive, and ongoing management of the chronic medical condition(s) listed above for patient. Flynn Fuentes DO Cardiology: t rivial/small and not of any clinical meaning at present Flynn Khoi Fuentes DO Cardiology:Stress te st 07/2023 no ischemia or arrhtyhmia, nearly 10 METS and 10 min on the Yoshi. C oronary ca score: 53 (LM 1, LAD 35, Cx 17, RCA 0) s tart baby aspirin n o angina or cardiac symptoms o n zetia a dding statin very reasonable Flynn Fuentes DO Cardiology: t rivial/small and not of any clinical meaning at present Flynn Fuentes DO Cardiology:LDL 151 t rigs 76 in 06/25 L Pa and crp nml in 24. desires not to be on statin i f cacs abn plan yanique Fuentes DO Cardiology: t amanda if more sx. Flynn Fuentes DO Cardiology: e cho ok 24 S tress test 07/2023 no ischemia or arrhtyhmia L abs 06/25: probnp 126, chem ok, LFTs ok, cbc ok, tsh ok Flynn Fuentes DO Cardiology:tele if more sx. Prad eep Khoi Fuentes DO Cardiology:echo ok l abs e tt Flynn Fuentes DO Cardiology:has been identified in the past d esires not to be on statin i f cacs abn plan yanique Fuentes DO Cardiology:trivial/s mall and not of any clinical meaning at present Flynn Fuentes DO Date Name EKG LIPID PANEL COMPREHENSIVE METABO LIC PANEL, W/EGFR EKG LIPID PANEL CT, Coronary Calcium Score EKG PROBNP, N TERMINAL CRP, high sensitivit y CBC (INCLUDES DIFF/P LT) COMPREHENSIVE METABO LIC PANEL, W/EGFR Lipoprotein (a) TSH, free T4, total T3 CT, Coronary Calcium Score Stress Routine Complete Echo HISTORY OF PROCEDURES Procedure Date Procedure Name Provider Procedure Notes S tatus Complex e/m visit ad d on Flynn Fuentes DO completed Complex e/m visit ad d on Flynn Fuentes DO completed EKG Flynn paris DO completed Regadenoson, 4 units Sp Brunson MD completed Cardiolite, 2 units Sp Brunson MD completed SPECT Images Sp Brunson MD comple diane Stress EKG Sp Brunson MD complete d
--- OUTSIDE RECORDS SUMMARY | 2024-06-25 07:55 | XMS_ITS | Clinical Summary ---
[facility] Organization [facility] Address [address] [place] [address] Care Team Providers Care Bowling Pin Refinisher Name Role Phone Valerie Jason MD Primary Care Provid er Allergies Active Allergy Reactions Criticality Noted Date [...] (two) times a day 3 Active zoledronic appy-kiwdifaI-fe ter (zoledronic acid) 5 mg/100 mL piggyback Active Active Problems Problem Noted Date Diagnosed Date Anxiety 02/04/2022 Hyperlipidemia 02/04/2022 Squamous cell carcinoma of skin 02/04/2022 Age-related osteoporosis wit hout current pathological fracture 11/10/2021 Convulsion 01/16/2021 Thyroid nodule 06/30/2020 Metatarsal stress fracture with nonunion 020 Overview (11/13/2019): Added automatically from request for surgery [id number] Chest pain 07/05/2019 Shortness of breath 07/05/2019 Gastro-esophageal reflux disease with esophagiti s 08/24/2018 Premature atrial contraction 09/15/2013 Overview (08/05/2016): ATRIAL PREMATURE BEATS Ventricular premature beats 09/15/2013 Overview (08/05/2016): PVCs Palpitations 09/15/2013 Overview (08/05/2016): PALPITATIONS Abnormal electrocardiography 09/15/2013 Overview (08/05/2016): ABNORM ELECTROCARDIOGRAM Osteoarthritis of knee 07/26/2011 Actinic keratosis 07/04/2008 Encounters Date Type Department Care Team Description 05/09/2024 Orders Only [facility] [address] [place] [address] Katy Melo MD Squamous cell carcinoma of skin of left upper limb, including shoulder 05/08/2024 8:15 AM MINING SUPPORT WORKER Procedure visit [facility] [address] [place] [address] [address] [place] [address] Katy Melo MD Squamous cell carcinoma of skin of left upper limb, including shoulder (Primary Dx); 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 04/18/2024 9:00 AM MINING SUPPORT WORKER Procedure visit [facility] [address] [facility] [address] [place] [address] Katy Melo MD Basal cell carcinoma (BCC) of skin of left upper lip (Primary Dx); Neoplasm of unspecified behavior of bone, soft tissue, and skin 04/18/2024 Orders Only [facility] [address] [place] [address] Katy Melo MD Neoplasm of unspecified behavior of bone, soft tissue, and skin from Last 3 Months Surgical History Surgery Date Site/Laterality Comments HYSTERECTOMY Medical History Medical History Date Comments Hx Other Medical total hysterect chucho; Comments: EMB 01/27/2015 - Cancer (CMS/HCC) (HCC) Osteoporosis Family History Medical History Relation Name Comments Heart disease Brother Arthritis Father Heart disease Father Hypertension Father Arthritis Mother Hypertension Mother Osteoporosis Mother Stroke Mother Broken bones Neg Hx Hip fracture Neg Hx Kyphosis Neg Hx Scoliosis Neg Hx Relation Name Status Comments Brother Father Mother Social History Tobacco Use Types Packs/Day Years [...] on file Legal Sex Female 12:57 AM MINING SUPPORT WORKER Gender Identity Not on file Sexual Orientation Not on file Obstetrics History Last Filed Vital Signs Vital Sign Reading [...] 12/16/2023 1:56 PM CDT Plan of Treatment Health Maintenance Due Date Last Done Comments Colon Cancer Screening-Colonoscopy 1960 Depression Screening 1960 Fall Risk Assessment 1960 Hepatitis C Screening 1960 DTaP/Tdap/Td Vaccine (1 - Tdap) 1969 Hepatitis B Screening 1976 Zoster Vaccine (1 of 2) 2008 Well Visit 65+ 2023 Influenza Vaccine (#1) 2024 Breast Cancer Screening-Mammogram 09/11/2024 09/12/2023, 09/12/2023, 08/26/2022 Osteoporosis Screening-Bone Density Scan 12/15/2025 12/16/2023, 11/16/2022, 11/10/2021, Additional history exists Pneumococcal vaccine 65+ Completed 08/29/2023 Procedures Procedure Name Priority Date/Time Associated Diagnosis Comments SURGICAL PATHOLOGY Routine 05/08/2024 12:00 AM MINING SUPPORT WORKER Squamous cell carcinoma of skin of left upper limb, including shoulder SURGICAL PATHOLOGY Routine 04/18/2024 12:00 AM MINING SUPPORT WORKER Neoplasm of unspecified behavior of bone, soft tissue, and skin DEXA TBS AXIAL SKELETON BONE DENSITY 1 OR MORE SITES Schedule Routine, Read Routine (OP Routine) 12/16/2023 2:27 PM CDT Age-related osteoporosis without current pathological fracture from Last 3 Months or Most Recently Relevant to Health Maintenance Results * Surgical pathology (05/08/2024 12:00 AM MINING SUPPORT WORKER) Tissue (Skin, shave biopsy) 05/08/2024 05/09/2024 6:47 AM MINING SUPPORT WORKER [facility] - 05/10/2024 1:43 PM MINING SUPPORT WORKER [facility] results best viewed via link to PDF [facility] [address] [place] [address], [address], [place] [address] [email or web address] Note to Patients: This report may contain [...] details. FINAL REPORT Patient Information: PATIENT NAME: IRAJ PLATA SEX: F : 1960 (Age: 64) Specimen Information: COLLECTED: 05/08/2024 RECEIVED: 05/09/2024 REPORTED: 05/10/2024 Submitting Physician Information: Katy Keenan M.D. [facility], [address] [place] [address], [address] [place] [address], DERMATOPATHOLOGY REPORT RESULTS DIAGNOSIS: SKIN, LEFT SHOULDER, [...] ICD-9 A; ZSD.27 ZSD.1474 Clerical Data A; 16432 The characteristics of special, immunohistochemical, and immunofluorescence stains and in-situ hybridization tests performed by the [facility] were deemed acceptable in ongoing nurse quality measures and in compliance with regulations drawn from the Clinical Laboratory Improvement Act xr1565 (CLIA '88). Control reactions for all stains performed were deemed adequate and appropriate by a pathologist prior to evaluation of patient tissue. Some diagnoses were rendered with the assistance of laboratory-developed tests utilizing analyte-specific reagents; the performance characteristic of these tests were determined by [facility] and are not cleared or approved by the US Food an Drug administration. Laboratory developed test may only be performed in a facility that is certified by the [facility] as a high-complexity laboratory under CLIA '88. These tests are used for clinical purposes and are not investigational. Katy Keenan MD LAB PATHOLOGY O RDERABLES Final Result DERMATOPATHOLOGY [address] [address] * Surgical pathology (04/18/2024 12:00 AM MINING SUPPORT WORKER) Tissue (Skin, shave biopsy) 04/18/2024 04/18/2024 12:59 PM MINING SUPPORT WORKER [facility] - 04/20/2024 5:09 PM MINING SUPPORT WORKER EPIC results best viewed via link to PDF [facility] Dermatopathology [address], [address] [address] [email or web address] Note to Patients: This report may contain [...] details. FINAL REPORT Patient Information: PATIENT NAME: IRAJ PLATA SEX: F : 1960 (Age: 63) Specimen Information: COLLECTED: 04/18/2024 RECEIVED: 04/18/2024 REPORTED: 04/20/2024 Submitting Physician Information: Katy Keenan M.D. Dermatology ([facility]), [address] [facility] [address], [address] [place] [address], DERMATOPATHOLOGY REPORT RESULTS DIAGNOSIS: SKIN, RIGHT BROW, [...] exr/tyc ICD-9 A; ZSD.1474 Clerical Data A; 92339 The characteristics of special, immunohistochemical, and immunofluorescence stains and in-situ hybridization tests performed by the [facility] were deemed acceptable in ongoing nurse quality measures and in compliance with regulations drawn from the Clinical Laboratory Improvement Act vb7556 (CLIA '88). Control reactions for all stains performed were deemed adequate and appropriate by a pathologist prior to evaluation of patient tissue. Some diagnoses were rendered with the assistance of laboratory-developed tests utilizing analyte-specific reagents; the performance characteristic of these tests were determined by [facility] and are not cleared or approved by the [place] Food an Drug administration. Laboratory developed test may only be performed in a facility that is certified by the [facility] as a high-complexity laboratory under CLIA '88. These tests are used for clinical purposes and are not investigational. us Katy Keenan MD LAB PATHOLOGY O RDERABLES Final Result DERMATOPATHOLOGY CENTER [address] [place] [address] * Dexa TBS Axial Skeleton Bone Density 1 or more sites (12/16/2023 2:27 PM CDT) Anatomical Region Laterality Modality Wrist, Body N/A Radiographic Li ging Narrative 12/16/2023 3:21 PM CDT Patient Name: Iraj Plata Date of : 1960 Date of scan: 12/16/2023 Bone mineral density was performed on a HoloGroupiter Discovery Densitometer. Based on machine cross-calibration and [...] by the International Society of Clinical Densitometry. [id number] Rajni Munroe MD IMG DXA PROCEDURES Final Resu lt from Last 3 Months or Most Recently Relevant to Health Maintenance Insurance [employer] [employer] [facility] H[facility]/PPO Address: [address] [place] [address] [employer] ACCESS CHOICE Member Subscriber Plan / Payer (Ef fective 2022-Present) Name:Iraj Plata Relation to Subscriber:Self Name:Iraj Plata Payer ID:[id number] ([facility]) Type:BC ALLIANCE Address: [facility] [id number] [place] [id number] Care Teams Bowling Pin Refinisher Relationship Specialty Start Date End Date Valerie Jason MD [address] [id number] PCP - General Internal Medicine 05/04/22
--- OUTSIDE RECORDS SUMMARY | 2024-06-25 07:55 | XMS_ITS | Clinical Summary ---
Author Organization [employer] [place] Address [address] [place] [address] Care Team Providers Care Elevator Examiner And Adjuster Name Role Phone Unavailable Primary Care Provider Unavailabl e Encounters Date Type Department Care Team Description 06/20/2024 External Device Data [facility] ABSTRACTION Provider, Abstract 05/23/2024 External Device Data [facility] Provider, Abstract 05/23/2024 External Device Data [facility]STRA[facility] Provider, Abstract from Last 3 Months Social History Tobacco Use Types Packs/Day Years Used Date Smoking Tobacco: Never Assessed Comments Unknown Sex and Gender Information Value Date Recorded Sex Assigned at Not on file Legal Sex Female 3:57 AM [employer] Gender Identity Not on file Sexual Orientation Not on file Plan of Treatment Health Maintenance Due Date Last Done Comments DTAP/TDAP/TD VACCINES (1 - Tdap) 1977 COLORECTAL SCREENING 2003 Colorectal Cancer Screening 2003 FIT-DNA Q 3 years 2003 FIT/FOBT Q 1 year 2003 Flex Sig/CT Colonography Q 5 years 2003 ZOSTER VACCINE (1 of 2) 2008 INFLUENZA VACCINE (#1) 2023 01/30/2022 BREAST CANCER SCREENING 09/11/2024 09/12/2023, 08/26 RSV VACCINE (60+ or ) (1 - 1-dose 75+ series) 2033 OSTEOPOROSIS SCREENING Completed 3, 11/16/2022, 11/10/2021, Additional history exists PNEUMOCOCCAL VACCINE 65+ YEARS Completed 08/29/2023 Procedures Procedure Name Priority Date/Time Associated Diagnosis Comments MAMMO 3D JUSTIN SCREEN IMPL BILAT W OR WO CAD Routine 09/12/2023 3:21 PM CDT Encounter for screening mammogram for malignant neoplasm of breast from Last 3 Months or Most Recently Relevant to Health Maintenance Results * MAMMO 3D JUSTIN SCREEN IMPL BILAT W OR WO CAD (09/12/2023 3:21 PM CDT) Anatomical Region Laterality Modality Breast Bilateral Mammography 09/12/2023 3:23 PM CDT Narrative 09/12/2023 3:31 PM CDT EXAM: MAMMO 3D JUSTIN SCREEN IMPL BILAT W OR WO CAD DATE: 09/12/2023 HISTORY: Encounter for screening mammogram for malignant neoplasm of breast COMPARISON: 08/26/2022 DENSITY: Scattered fibroglandular densities. FINDINGS: Bilateral screening mammograms with tomosynthesis and inplant displaced views were performed. Computer assisted detection was utilized. Little significant change is noted. The parenchymal pattern is essentially unchanged. A small right paraspinal cyst is again noted. There are linear calcifications noted in the right inner breast which appear relatively unchanged. No new dominant mass, architectural distortion, nipple retraction, skin thickening, or suspicious calcifications are seen. ASSESSMENT: BIRADS Category 2: Benign finding(s). Digital technology was employed plus computer-aided detection software was utilized in interpretation of these images. us Valerie Jason MD MAMMO ORDERABLES Final Resul t from Last 3 Months or Most Recently Relevant to Health Maintenance Insurance [facility] [employer] EPO
== END 2024-06-25 07:49 | disposition home or self-care (01) ==
PROVIDERS: Visit Provider Nurse Practitioner Family
DX: R10.13 Epigastric pain (principal)
CPT/HCPCS: 76700